=== PATIENT | female | born 1950 | race Caucasian/White ===

== ENCOUNTER 2016-07-03 08:00 | Emergency (ER) | payer MEDICARE ==
--- NOTE | 2016-07-03 08:14 | Emergency Department Record ---
History of Present Illness - General Chief Complaint: Dizziness Stated Complaint: DIZZY Time Seen by Provider: 07/03/16 08:08 Source: Patient, EMS Mode of Arrival: EMS Limitations: No limitations - History of Present Illness Initial Comments: 66yo female presents with dizziness, weakness, feeling confused. She feels somewhat short of breath, wheezing. She has a history of COPD, on home oxygen. She saw Dr Garcia yesterday for ongoing treatment of gout. He increased her Morphine to 30mg daily from 15mg for her pain. She states she has a mild headache, no vision changes, no chest pain, she has some cough and wheeze. No abdominal pain or diarrhea. She has left foot MTP redness and swelling form her gout. 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 MD Complaint: Dizziness, Lightheadedness -: Hour(s) Timing: Awoke with symptoms Description: Lightheadedness, Sense of movement History of Same: No History of Trauma: No Severity: Moderate Improves With: Nothing Associated Symptoms: Denies other symptoms, Ataxia - [place] Coma Scale Eye Response: (4) Open spontaneously Motor Response: (6) Obeys commands Verbal Response: (5) Oriented [place] Total: 15 - Symptoms of Stroke Symptoms of stroke: Dizziness - Related Data Home Medications Medication Instructions Recorded Confirmed Last Taken Albuterol Sulfate 2.5 mg NEB Q6H ml 09/14/15 07/03/16 02/14/16 Albuterol Sulfate [Ventolin Hfa] 1 - 2 puff IH Q4H inhaler 09/14/15 07/03/16 Amitriptyline HCl 25 mg PO QHS tab 09/14/15 07/03/16 02/14/16 Ascorbic Acid [Vitamin C] 1,000 mg PO DAILY tab 09/14/15 07/03/16 02/14/16 Budesonide/Formoterol Fumarate 2 puff IH BID puff 09/14/15 07/03/16 02/14/16 [Symbicort 160-4.5 Mcg Inhaler] Calcium Carbonate [Calcium] 600 mg PO DAILY tab 09/14/15 07/03/16 02/14/16 Citalopram Hydrobromide [Celexa] 40 mg PO QHS tab 09/14/15 07/03/16 02/14/16 Hydrocodone/Acetaminophen [[place] 1 tab PO Q6-8HR tab 09/14/15 07/03/16 02/14/16 10mg/325mg] Ipratropium [place] 0.2 mg IH QID 09/14/15 07/03/16 02/14/16 Meloxicam 15 mg PO DAILY tab 09/14/15 07/03/16 02/14/16 Morphine Sulfate [Ms Contin] 30 mg PO Q12H tab 09/14/15 07/03/16 07/02/16 Ranitidine HCl 150 mg PO DAILY cap 09/14/15 07/03/16 02/14/16 Sennosides/Docusate Sodium 2 tab PO DAILY tab 09/14/15 07/03/16 02/14/16 [Senexon-S Tablet] Theophylline Anhydrous 300 mg PO BID 09/14/15 07/03/16 02/14/16 Vitamin B Complex 1 each PO DAILY cap 09/14/15 07/03/16 02/14/16 Clindamycin HCl [Cleocin HCl] 300 mg PO TID 07/03/16 07/03/16 Unknown Furosemide [Furosemide] 40 mg PO DAILY 07/03/16 07/03/16 Unknown Indomethacin [Indocin] 50 mg PO BID 07/03/16 07/03/16 Unknown Sulfamethoxazole/Trimethoprim 1 tab PO BID 07/03/16 07/03/16 Unknown [Sulfamethoxazole-Tmp Ds Tablet] Allergies Allergy/AdvReac Type Severity Reaction Status Date / Time prochlorperazine Allergy Severe ANAPHYLAXIS Verified 02/14/16 11:50 meperidine HCl [From Demerol] Allergy Intermediate ALTERED Verified 02/14/16 11: 50 MENTAL STATUS Past Medical History - SOCIAL HISTORY Smoking Status: Former smoker Drug Use: None - RESPIRATORY Hx Respiratory Disorders: Yes Hx Asthma: Yes Hx Bronchitis: Yes Hx COPD: Yes Hx Pneumonia: Yes Comment:: emphysema - CARDIOVASCULAR Hx Cardio Disorders: No - NEURO Hx Neuro Disorders: No - GI Hx GI Disorders: No - Hx Genitourinary Disorders: No - ENDOCRINE Hx Endocrine Disorders: No - MUSCULOSKELETAL Hx Musculoskeletal Disorders: Yes Hx Arthritis: Yes - PSYCH Hx Psych Problems: Yes Hx Depression: Yes - HEMATOLOGY/ONCOLOGY Hx Hematology/Oncology Disorders: No Family Medical History Hx Resp Disorders: Mother, Grandparents Medical Decision Making - Lab Data Result diagrams: 07/03/16 08:30 03/05/17 08:30 Disposition Clinical Impression: COPD exacerbation, Gout attack, Adverse reaction to narcotic drug, Hypoxia, Ataxia, CVA (cerebral vascular accident) Disposition: Acute Care Hospital Transfer Condition: (1) Good Forms: Patient Portal Access
[2016-07-03] MEDS ORDERED: IPRATROPIUM/ALBUTEROL (0.5MG/3MG) NEB INH ONE (08:29)
[2016-07-03] MEDS ORDERED: MECLIZINE 25 MG TABLET PO ONE (08:30)
--- NOTE | 2016-07-03 08:38 | Emergency Department Record ---
History of Present Illness - General Chief Complaint: Dizziness Stated Complaint: DIZZY Time Seen by Provider: 07/03/16 08:08 Source: Patient, EMS Mode of Arrival: EMS Limitations: No limitations - History of Present Illness Initial Comments: 66 yo female presents with dizziness since . She called EMS today due to increasing dizziness, trouble walking, trouble concentrating. She has also been short of breath the last several days. She saw her PCP . He is treating her for gout. He also increased her Morphine from 15mg BID to 30mg BID. No falls. PCP is Dr Garcia. She is on antibiotics for her gout and has been seen by Podiatry in [place] -: Hour(s) Timing: Awoke with symptoms Description: Lightheadedness, Sense of movement History of Same: No History of Trauma: No Severity: Moderate Improves With: Nothing Worsens With: Nothing Associated Symptoms: Denies other symptoms, Ataxia - [place] Coma Scale Eye Response: (4) Open spontaneously Motor Response: (6) Obeys commands Verbal Response: (5) Oriented [place] Total: 15 - Symptoms of Stroke Symptoms of stroke: Dizziness - Related Data Home Medications Medication Instructions Recorded Confirmed Last Taken Albuterol Sulfate 2.5 mg NEB Q6H ml 09/14/15 07/03/16 02/14/16 Albuterol Sulfate [Ventolin Hfa] 1 - 2 puff IH Q4H inhaler 09/14/15 07/03/16 Amitriptyline HCl 25 mg PO QHS tab 09/14/15 07/03/16 02/14/16 Ascorbic Acid [Vitamin C] 1,000 mg PO DAILY tab 09/14/15 07/03/16 02/14/16 Budesonide/Formoterol Fumarate 2 puff IH BID puff 09/14/15 07/03/16 02/14/16 [Symbicort 160-4.5 Mcg Inhaler] Calcium Carbonate [Calcium] 600 mg PO DAILY tab 09/14/15 07/03/16 02/14/16 Citalopram Hydrobromide [Celexa] 40 mg PO QHS tab 09/14/15 07/03/16 02/14/16 Hydrocodone/Acetaminophen [[place] 1 tab PO Q6-8HR tab 09/14/15 07/03/16 02/14/16 10mg/325mg] Ipratropium [place] 0.2 mg IH QID 09/14/15 07/03/16 02/14/16 Meloxicam 15 mg PO DAILY tab 09/14/15 07/03/16 02/14/16 Morphine Sulfate [Ms Contin] 30 mg PO Q12H tab 09/14/15 07/03/16 07/02/16 Ranitidine HCl 150 mg PO DAILY cap 09/14/15 07/03/16 02/14/16 Sennosides/Docusate Sodium 2 tab PO DAILY tab 09/14/15 07/03/16 02/14/16 [Senexon-S Tablet] Theophylline Anhydrous 300 mg PO BID 09/14/15 07/03/16 02/14/16 Vitamin B Complex 1 each PO DAILY cap 09/14/15 07/03/16 02/14/16 Clindamycin HCl [Cleocin HCl] 300 mg PO TID 07/03/16 07/03/16 Unknown Furosemide [Furosemide] 40 mg PO DAILY 07/03/16 07/03/16 Unknown Indomethacin [Indocin] 50 mg PO BID 07/03/16 07/03/16 Unknown Sulfamethoxazole/Trimethoprim 1 tab PO BID 07/03/16 07/03/16 Unknown [Sulfamethoxazole-Tmp Ds Tablet] Allergies Allergy/AdvReac Type Severity Reaction Status Date / Time prochlorperazine Allergy Severe ANAPHYLAXIS Verified 02/14/16 11:50 meperidine HCl [From Demerol] Allergy Intermediate ALTERED Verified 02/14/16 11: 50 MENTAL STATUS Travel Screening - Travel/Exposure Within Last 30 Days Have you traveled within the last 30 days?: No Review of Systems Constitutional: Reports: Malaise, Weakness. Denies: Chills Eyes: Denies: Eye discharge, Eye pain, Photophobia, Vision change ENT: Denies: Congestion Respiratory: Reports: Cough, Wheezes. Denies: Dyspnea, Stridor Cardiovascular: Denies: Chest pain, Palpitations, Syncope Endocrine: Reports: Fatigue. Denies: Polydipsia, Polyuria Gastrointestinal: Denies: Abdominal pain, Diarrhea, Nausea, Vomiting Genitourinary: Denies: Dysuria, Frequency, Urgency Musculoskeletal: Reports: Arthralgia (gout). Denies: Back pain, Myalgia, Neck pain Skin: Denies: Bruising, Change in color, Rash Neurological: Reports: Headache, Vertigo, Weakness. Denies: Confusion, Numbness , Paresthesias Psychiatric: Denies: Anxiety Hematological/Lymphatic: Denies: Blood Clots, Easy bleeding, Easy bruising, Swollen glands Past Medical History - SOCIAL HISTORY Smoking Status: Former smoker Drug Use: None - RESPIRATORY Hx Respiratory Disorders: Yes Hx Asthma: Yes Hx Bronchitis: Yes Hx COPD: Yes Hx Pneumonia: Yes Comment:: emphysema - CARDIOVASCULAR Hx Cardio Disorders: No - NEURO Hx Neuro Disorders: No - GI Hx GI Disorders: No - Hx Genitourinary Disorders: No - ENDOCRINE Hx Endocrine Disorders: No - MUSCULOSKELETAL Hx Musculoskeletal Disorders: Yes Hx Arthritis: Yes - PSYCH Hx Psych Problems: Yes Hx Depression: Yes - HEMATOLOGY/ONCOLOGY Hx Hematology/Oncology Disorders: No Family Medical History Hx Resp Disorders: Mother, Grandparents Physical Exam - General General Appearance: Alert, Oriented x3 (fully oriented but easily side tracked) , Cooperative, No acute distress Limitations: No limitations - Head Head exam: Atraumatic, Normal inspection - Eye Eye exam: Normal appearance, PERRL. negative: Conjunctival injection, Periorbital swelling - ENT ENT exam: Normal exam, Mucous membranes dry Ear exam: Normal external inspection Nasal Exam: Normal inspection Mouth exam: Normal external inspection Teeth exam: Normal inspection Throat exam: Normal inspection - Neck Neck exam: Normal inspection, Full ROM. negative: Tenderness - Respiratory Respiratory exam: Decreased breath sounds, Prolonged expiratory, Wheezes. negative: Normal lung sounds bilaterally, Respiratory distress - Cardiovascular Cardiovascular Exam: Normal rhythm, Tachycardia - Rectal Rectal exam: Deferred - exam: Deferred - Extremities Extremities exam: Joint swelling (left foot MTP red, swollen, clear drainage), Pedal edema, Tenderness - Back Back exam: Reports: Normal inspection, Full ROM. Denies: Muscle spasm, Rash noted, Tenderness - Neurological Neurological exam: Abnormal gait, Alert, Other (Unsteady on her feet, oriented but looses train of thought) - Psychiatric Psychiatric exam: Other (some attention difficulties). negative: Agitated, Anxious - Skin Skin exam: Dry, Intact, Normal color, Warm Course Vital Signs 07/03/16 08:03 Temperature 98.6 F Pulse Rate 109 H Respiratory 20 Rate Blood Pressure 190/93 Pulse Ox 89 L - Reevaluation(s) Reevaluation #1: Please note initial note was inadvertently made under Dr Jack Davalos's name. The entirety of the case was under my care" Hugh Agosto MD. 07/03/16 08:33 Reevaluation #2: EKG Sinus 98, intervals normal, axis normal, ST no acute changes, old Q wave in III No changes from 02/13/17 07/03/16 09:01 Reevaluation #3: The CXR is negative HCT pending 07/03/16 09:49 Reevaluation #4: HCT scan demonstrates a lucency in the right internal capsule that may represent a subacute stroke Given this finding I discussed possible transfer to [facility] for further evaluation [facility] was contacted (Quin CLEARY) 07/03/16 10:24 Medical Decision Making - Lab Data Result diagrams: 07/03/16 08:30 07/03/16 08:30 Disposition Disposition: Transfer Clinical Impression: COPD exacerbation, Acute gout, Adverse effect of narcotic drug, Hypoxia, Ataxia , Cerebrovascular accident (CVA) Disposition: Acute Care Hospital Transfer Transfer To: [facility] Reason For Transfer: Neuro Accepting Physician: Garry Time Discussed w/Accepting Physician: 10:26 Condition: (1) Good Forms: Patient Portal Access Time of Disposition: 10:26
[2016-07-03 08:48] LABS: BASO % 0.4 % (0-6); EOS % 1.7 % (0-6); GRAN % 71.9 % (47-80); HEMATOCRIT 42.1 % (35.0-47.0); HEMOGLOBIN 12.6 gm/dl (11.6-16.0); MEAN CELL VOLUME 102.7 fl (81-97); MEAN CORPUSCULAR HEMOGLOBIN 30.7 pg (27-33); MEAN CORPUSCULAR HGB CONC 29.9 g/dl (32-36); MEAN PLATELET VOLUME 11.4 fl (7.4-10.4); PLATELET COUNT 295 K/uL (130-400); RED CELL DISTRIBUTION WIDTH 11.8 % (11.5-14.5); WHITE BLOOD COUNT W/O DIFF 9.8 K/uL (4.2-12.2)
[2016-07-03 08:58] LABS: ALB/GLOB RATIO 1.2 (1.1-1.8); ALBUMIN 3.8 gm/dL (3.5-5.0); ALKALINE PHOSPHATASE 92 U/L (38-126); ALT/SGPT 31 U/L (9-52); AST/SGOT 32 U/L (14-36); BILIRUBIN,TOTAL 0.28 mg/dL (0.2-1.3); BLOOD UREA NITROGEN 16 mg/dL (7-17); CREATININE 0.6 mg/dL (0.52-1.04); EST GLOMERULAR FILTRATION RATE > 60 ml/min; GLUCOSE,RANDOM 156 mg/dL (70-110); TOTAL PROTEIN 7.1 gm/dL (6.3-8.2)
[2016-07-03 19:49] LABS: TROPONIN I 0.022 ng/mL (0.00-0.034)
== END 2016-07-03 13:30 | disposition short-term general hospital (02) ==
LOC: ER 08:00
DX: I63.9 Cerebral infarction, unspecified (principal); R26.0 Ataxic gait; M10.072 Idiopathic gout, left ankle and foot; J44.1 Chronic obstructive pulmonary disease with (acute) exacerbation; Z87.891 Personal history of nicotine dependence; R51 Headache; T40.2X5A Adverse effect of other opioids, initial encounter; R42 Dizziness and giddiness
CPT/HCPCS: 70450; 71020; 80053; 83880; 84484; 85025; 93005; 93010; 94640; 99285

== ENCOUNTER 2016-12-13 10:06 | Inpatient (IN) | payer MEDICARE ==
[2016-12-13] MEDS ORDERED: IPRATROPIUM/ALBUTEROL (0.5MG/3MG) NEB INH ONE ×2 (10:09→11:00)
--- NOTE | 2016-12-13 10:15 | Emergency Department Record ---
History of Present Illness - General Stated Complaint: DAVID Time Seen by Provider: 12/13/16 10:08 Source: Patient, EMS Mode of Arrival: Stretcher Limitations: No limitations - History of Present Illness Initial Comments: 66 yo presents with shortness of breath that has been progressive over the last one week. She reports a history of COPD on 2 liters home oxygen. She has increased cough. No fevers or chest pain. She is a former smoker. She denies a history of CAD or CHF. PCP is Dr Garcia. She is on Duonebs and/or Albuterol K5idalb. She does have some ortega sputum on occasion. NO hemoptysis. No current oral steroid or inhaled steroid. MD Complaint: Cough, Shortness of breath -: Week(s) (1) Severity: Moderate Quality: Other Consistency: Constant Improves With: Bronchodilators Worsens With: Coughing, Movement Known History Of: COPD Context: Other Associated Symptoms: Cough Treatments Prior to Arrival: Bronchodilator - Related Data Home Medications Medication Instructions Recorded Confirmed Last Taken Albuterol Sulfate 2.5 mg NEB Q6H ml 09/14/15 12/13/16 02/14/16 Albuterol Sulfate [Ventolin Hfa] 1 - 2 puff IH Q4H inhaler 09/14/15 12/13/16 Amitriptyline HCl 25 mg PO QHS tab 09/14/15 12/13/16 02/14/16 Calcium Carbonate [Calcium] 600 mg PO DAILY tab 09/14/15 12/13/16 02/14/16 Citalopram Hydrobromide [Celexa] 40 mg PO QHS tab 09/14/15 12/13/16 02/14/16 Meloxicam 15 mg PO DAILY tab 09/14/15 12/13/16 02/14/16 Ranitidine HCl 150 mg PO DAILY cap 09/14/15 12/13/16 02/14/16 Sennosides/Docusate Sodium 2 tab PO DAILY tab 09/14/15 12/13/16 02/14/16 [Senexon-S Tablet] Theophylline Anhydrous 300 mg PO BID 09/14/15 12/13/16 02/14/16 Vitamin B Complex 1 each PO DAILY cap 09/14/15 12/13/16 02/14/16 Furosemide [Furosemide] 20 mg PO DAILY 07/03/16 12/13/16 Unknown Indomethacin [Indocin] 100 mg PO DAILY 07/03/16 12/13/16 Unknown Azithromycin [Azithromycin] 500 mg PO ASDIR 12/13/16 12/13/16 Unknown Cetirizine HCl [Allergy Relief] 10 mg PO DAILY 12/13/16 12/13/16 Unknown Ipratropium/Albuterol [Duoneb] 3 ml IH Q4H PRN 12/13/16 12/13/16 Unknown Allergies Allergy/AdvReac Type Severity Reaction Status Date / Time prochlorperazine Allergy Severe ANAPHYLAXIS Verified 02/14/16 11:50 meperidine HCl [From Demerol] Allergy Intermediate ALTERED Verified 02/14/16 11: 50 MENTAL STATUS Review of Systems Constitutional: Reports: Weakness. Denies: Chills, Fever Eyes: Denies: Eye discharge ENT: Denies: Congestion, Throat pain Respiratory: Reports: Cough, Dyspnea, Wheezes. Denies: Hemoptysis Cardiovascular: Denies: Chest pain, Palpitations, Syncope Endocrine: Denies: Fatigue Gastrointestinal: Denies: Abdominal pain, Diarrhea, Nausea, Vomiting Genitourinary: Denies: Dysuria Musculoskeletal: Denies: Arthralgia, Back pain, Neck pain Skin: Denies: Bruising, Change in color, Rash Neurological: Denies: Confusion, Headache, Numbness, Tingling, Tremors, Vertigo , Weakness Psychiatric: Denies: Anxiety Hematological/Lymphatic: Denies: Blood Clots, Easy bleeding, Easy bruising, Swollen glands Past Medical History - SOCIAL HISTORY Smoking Status: Former smoker Drug Use: None - RESPIRATORY Hx Respiratory Disorders: Yes Hx Asthma: Yes Hx Bronchitis: Yes Hx COPD: Yes Hx Pneumonia: Yes Comment:: emphysema - CARDIOVASCULAR Hx Cardio Disorders: No - NEURO Hx Neuro Disorders: No - GI Hx GI Disorders: No - Hx Genitourinary Disorders: No - ENDOCRINE Hx Endocrine Disorders: No - MUSCULOSKELETAL Hx Musculoskeletal Disorders: Yes Hx Arthritis: Yes - PSYCH Hx Psych Problems: Yes Hx Depression: Yes - HEMATOLOGY/ONCOLOGY Hx Hematology/Oncology Disorders: No Family Medical History Hx Resp Disorders: Mother, Grandparents Physical Exam - General General Appearance: Alert, Oriented x3, Cooperative, No acute distress Limitations: No limitations - Head Head exam: Normal inspection - Eye Eye exam: Normal appearance, PERRL. negative: Conjunctival injection, Periorbital swelling - ENT ENT exam: Normal exam, Mucous membranes moist Ear exam: Normal external inspection Nasal Exam: Normal inspection Mouth exam: Normal external inspection Teeth exam: Normal inspection Throat exam: Normal inspection - Neck Neck exam: Normal inspection, Full ROM. negative: Tenderness - Respiratory Respiratory exam: Accessory muscle use, Decreased breath sounds, Prolonged expiratory, Rhonchi, Wheezes. negative: Normal lung sounds bilaterally - Cardiovascular Cardiovascular Exam: Regular rate, Normal rhythm, Normal heart sounds - GI/Abdominal GI/Abdominal exam: Soft. negative: Tenderness - Rectal Rectal exam: Deferred - exam: Deferred - Extremities Extremities exam: Normal inspection, Full ROM, Normal capillary refill. negative: Tenderness - Back Back exam: Reports: Normal inspection, Full ROM. Denies: Muscle spasm, Rash noted, Tenderness - Neurological Neurological exam: Alert, Normal gait, Oriented X3 - Psychiatric Psychiatric exam: Normal affect, Normal mood. negative: Agitated, Anxious - Skin Skin exam: Dry, Intact, Normal color, Warm. negative: Erythema Course - Reevaluation(s) Reevaluation #1: RT notified and present in the room, 12/13/16 10:14 Reevaluation #2: EKG 10:27 Sinus Tach at 111, intervals Qtc 480, [place] rightward, ST no acute changes 12/13/16 10:34 Reevaluation #3: CXR no acute changes The patient has persistent wheezing. She will require admission. 12/13/16 11:03 Reevaluation #4: The labs were reviewed No acute changes on the CBC CMP reviewed. HCO3 at baseline Troponin 0.034 [address]NP [address]. PAC for admission for COPD. We discussed the ED course, labs, CXR. Full Admission. 12/13/16 11:28 12/13/16 11:34 Medical Decision Making - Lab Data Result diagrams: 12/13/16 10:30 12/13/16 10:30 Disposition Disposition: Admit Clinical Impression: COPD exacerbation Disposition: Still a Patient at [facility] Decision to Admit: Admit from ER Decision to Admit Date: 12/13/16 Decision to Admit Time: 11:05 Condition: (1) Good Time of Disposition: 11:05 Quality - Quality Measures Quality Measures: N/A - Blood Pressure Screening View Details: Yes Does Patient Have Any of the Following: No Blood Pressure Classification: Pre-Hypertensive BP Reading Systolic Measurement: 139 Diastolic Measurement: 87 Screening for High Blood Pressure: < Pre-Hypertensive BP, F/U Documented > [ [id number]] Pre-Hypertensive Follow-up Interventions: Referral to alternative/primary care provider.
[2016-12-13 10:49] LABS: BASO % 0.8 % (0-6); EOS % 3.5 % (0-6); GRAN % 55.2 % (47-80); HEMATOCRIT 41.5 % (35.0-47.0); HEMOGLOBIN 12.5 gm/dl (11.6-16.0); LYMPH % 32.5 % (16-45); MEAN CELL VOLUME 99.3 fl (81-97); MEAN CORPUSCULAR HEMOGLOBIN 29.9 pg (27-33); MEAN CORPUSCULAR HGB CONC 30.1 g/dl (32-36); MEAN PLATELET VOLUME 10.9 fl (7.4-10.4); PLATELET COUNT 406 K/uL (130-400); RED BLOOD COUNT 4.18 M/uL (3.80-5.40); RED CELL DISTRIBUTION WIDTH 12.7 % (11.5-14.5); WHITE BLOOD COUNT W/O DIFF 9.7 K/uL (4.2-12.2)
[2016-12-13 11:03] LABS: ALBUMIN 3.7 gm/dL (3.5-5.0); ALKALINE PHOSPHATASE 125 U/L (38-126); ALT/SGPT 47 U/L (9-52); AST/SGOT 26 U/L (14-36); BILIRUBIN,TOTAL 0.67 mg/dL (0.2-1.3); BLOOD UREA NITROGEN 15 mg/dL (7-17); CREATININE 0.6 mg/dL (0.52-1.04); EST GLOMERULAR FILTRATION RATE > 60 ml/min; GLUCOSE,RANDOM 159 mg/dL (70-110); TOTAL PROTEIN 7.5 gm/dL (6.3-8.2)
[2016-12-13] MEDS ORDERED: CEFTRIAXONE SODIUM 1 GM in 0.9 % SODIUM CHLORIDE 100ML 100 ML IVPB ONE (11:03)
[2016-12-13 11:11] LABS: ANION GAP 5.5 (7-16)
[2016-12-13 11:12] LABS: CARBON DIOXIDE 43.5 mmol/L (22-30)
[2016-12-13 11:14] LABS: TROPONIN I 0.034 ng/mL (0.00-0.034)
[2016-12-13] MEDS ORDERED: ALBUTEROL SULFATE (0.083%) 2.5 MG/3 ML NEB INH PRN (12:55)
[2016-12-13] MEDS ORDERED: METHYLPREDNISOLONE PF 125MG/VIAL IVP SCH (12:55)
--- NOTE | 2016-12-13 13:02 | History & Physical ---
History of Present Illness - Date of Service Date of Service for History & Physical: 12/13/16 - History of Present Illness Admitting Diagnosis: COPD History of Present Illness: 66 y/o female with 1 week history of progressive worsening of wheezing and shortness of breath admitted for exacerbation of COPD. Past medical history includes bilateral cataracts, asthma, bronchitis, COPD, pneumonia, former smoker , CAD, CHF, arthritis, gout, depression. Prior to arrival had progressive worsening of wheezing, cough and shortness of breath for the past week, has been having to use duo neb every 4 hours without relief of shortness of breath. Admits to mild increase in ortega colored sputum. Denied fever or chest pain. Uses 2L O2 at home. Last hospitalized for pneumonia just over 1 year ago. 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 While in ED SPO2 89% room air, 94% 2L O2. VSS. CBC/CMP unremarkable, no elevation in WBC. Troponin 0.034, BNP 350. CO2 43.5. EKG sinus tach, no acute changes. CXR with mild chronic changes, no infiltrate. Given duo neb x 2 with persistent wheezing. Rocephin 1gm initiated. 12/13/16- resting in bed comfortably, reports improvement in shortness of breath. Wheezing remains but feels is slightly improved since being in the ER. VSS stable. No new nursing concerns. PCP: Dr Gracia Pulmonology: Dr Doyle Travel Screening - Travel/Exposure Within Last 30 Days Have you traveled within the last 30 days?: No Review of Systems Constitutional: Reports: Weakness. Denies: Chills, Fever Eyes: Denies: Eye discharge ENT: Denies: Congestion, Throat pain Respiratory: Reports: Cough, Dyspnea, Wheezes. Denies: Hemoptysis Cardiovascular: Denies: Chest pain, Palpitations, Syncope Endocrine: Denies: Fatigue Gastrointestinal: Denies: Abdominal pain, Diarrhea, Nausea, Vomiting Genitourinary: Denies: Dysuria Musculoskeletal: Denies: Arthralgia, Back pain, Neck pain Skin: Denies: Bruising, Change in color, Rash Neurological: Denies: Confusion, Headache, Numbness, Tingling, Tremors, Vertigo , Weakness Psychiatric: Denies: Anxiety Hematological/Lymphatic: Denies: Blood Clots, Easy bleeding, Easy bruising, Swollen glands Past Medical History - SOCIAL HISTORY Smoking Status: Former smoker Drug Use: None - RESPIRATORY Hx Respiratory Disorders: Yes Hx Asthma: Yes Hx Bronchitis: Yes Hx COPD: Yes Hx Pneumonia: Yes Comment:: emphysema - CARDIOVASCULAR Hx Cardio Disorders: No - NEURO Hx Neuro Disorders: No - GI Hx GI Disorders: No - Hx Genitourinary Disorders: No - ENDOCRINE Hx Endocrine Disorders: No - MUSCULOSKELETAL Hx Musculoskeletal Disorders: Yes Hx Arthritis: Yes - PSYCH Hx Psych Problems: Yes Hx Depression: Yes - HEMATOLOGY/ONCOLOGY Hx Hematology/Oncology Disorders: No Family Medical History Hx Resp Disorders: Mother, Grandparents H&P Meds/Allergies - Allergies Allergies: Allergies Allergy/AdvReac Type Severity Reaction Status Date / Time prochlorperazine Allergy Severe ANAPHYLAXIS Verified 02/14/16 11:50 meperidine HCl [From Demerol] Allergy Intermediate ALTERED Verified 02/14/16 11: 50 MENTAL STATUS - Home Medications Home Medications Medication Instructions Recorded Confirmed Last Taken Albuterol Sulfate 2.5 mg NEB Q6H ml 09/14/15 12/13/16 02/14/16 Albuterol Sulfate [Ventolin Hfa] 1 - 2 puff IH Q4H inhaler 09/14/15 12/13/16 Amitriptyline HCl 25 mg PO QHS tab 09/14/15 12/13/16 02/14/16 Calcium Carbonate [Calcium] 600 mg PO DAILY tab 09/14/15 12/13/16 02/14/16 Citalopram Hydrobromide [Celexa] 40 mg PO QHS tab 09/14/15 12/13/16 02/14/16 Meloxicam 15 mg PO DAILY tab 09/14/15 12/13/16 02/14/16 Ranitidine HCl 150 mg PO DAILY cap 09/14/15 12/13/16 02/14/16 Sennosides/Docusate Sodium 2 tab PO DAILY tab 09/14/15 12/13/16 02/14/16 [Senexon-S Tablet] Theophylline Anhydrous 300 mg PO BID 09/14/15 12/13/16 02/14/16 Vitamin B Complex 1 each PO DAILY cap 09/14/15 12/13/16 02/14/16 Furosemide [Furosemide] 20 mg PO DAILY 07/03/16 12/13/16 Unknown Indomethacin [Indocin] 100 mg PO DAILY 07/03/16 12/13/16 Unknown Azithromycin [Azithromycin] 500 mg PO ASDIR 12/13/16 12/13/16 Unknown Cetirizine HCl [Allergy Relief] 10 mg PO DAILY 12/13/16 12/13/16 Unknown Ipratropium/Albuterol [Duoneb] 3 ml IH Q4H PRN 12/13/16 12/13/16 Unknown - Active Medications Active Medications: Current Medications Acetaminophen (Tylenol 500mg Tab) 500 mg PO Q6H PRN PRN Reason: PAIN/TEMP Albuterol Sulfate () 2.5 mg INH RESP.Q2H PRN PRN Reason: DIFFICULTY IN BREATHING Albuterol/Ipratropium (Duoneb) 3 ml INH RESP.Q4H.[facility] Amitriptyline HCl (Elavil) 25 mg PO QHS [facility] Azithromycin (Zithromax) 500 mg PO DAILY [facility] Enoxaparin Sodium (Lovenox) 40 mg SC DAILY [facility] Furosemide (Lasix) 20 mg PO DAILY [facility] Ceftriaxone Sodium 1 gm/ (Sodium Chloride) 100 mls @ 100 mls/hr IVPB Q24H [facility] Stop: 12/18/16 12:56 Methylprednisolone Sodium Succinate (Solu-Medrol) 60 mg IVP Q8H [facility] Non-Formulary Medication (Calcium Carbonate [Calcium]) 600 mg PO DAILY [facility] Non-Formulary Medication (Cetirizine Hcl [Allergy Relief]) 10 mg PO DAILY [facility] Non-Formulary Medication (Citalopram Hydrobromide [Celexa]) 40 mg PO QHS [facility] Non-Formulary Medication (Indomethacin [Indocin]) 100 mg PO DAILY [facility] Non-Formulary Medication (Meloxicam [Meloxicam]) 15 mg PO DAILY [facility] Non-Formulary Medication (Ranitidine Hcl [Ranitidine Hcl]) 150 mg PO DAILY [facility] Non-Formulary Medication (Theophylline Anhydrous [Theophylline Anhydrous]) 300 mg PO BID [facility] Non-Formulary Medication (Vitamin B Complex [Vitamin B Complex]) 1 each PO DAILY [facility] Senna/Docusate Sodium (Senna Plus) each PO DAILY [facility] Physical Exam - General General Appearance: Alert, Oriented x3, Cooperative, No acute distress Limitations: No limitations - Head Head exam: Normal inspection - Eye Eye exam: Normal appearance, PERRL. negative: Conjunctival injection, Periorbital swelling - ENT ENT exam: Normal exam, Mucous membranes moist Ear exam: Normal external inspection Nasal Exam: Normal inspection Mouth exam: Normal external inspection Teeth exam: Normal inspection Throat exam: Normal inspection - Neck Neck exam: Normal inspection, Full ROM. negative: Tenderness - Respiratory Respiratory exam: Accessory muscle use, Decreased breath sounds, Prolonged expiratory, Rhonchi, Wheezes. negative: Normal lung sounds bilaterally - Cardiovascular Cardiovascular Exam: Regular rate, Normal rhythm, Normal heart sounds - GI/Abdominal GI/Abdominal exam: Soft. negative: Tenderness - Rectal Rectal exam: Deferred - exam: Deferred - Extremities Extremities exam: Normal inspection, Full ROM, Normal capillary refill. negative: Tenderness - Back Back exam: Reports: Normal inspection, Full ROM. Denies: Muscle spasm, Rash noted, Tenderness - Neurological Neurological exam: Alert, Normal gait, Oriented X3 - Psychiatric Psychiatric exam: Normal affect, Normal mood. negative: Agitated, Anxious - Skin Skin exam: Dry, Intact, Normal color, Warm. negative: Erythema Results - Labs Result Diagrams: 12/13/16 10:30 12/13/16 10:30 - Imaging and Cardiology Chest x-ray Status: Report reviewed (chronic changes) VTE H&P Assessment - Risk for VTE Risk for VTE: Yes Risk Level: Moderate Risk Assessment Date: 12/13/16 Risk Assessment Time: 13:34 VTE Orders Placed or Will Be Placed: Yes Plan - Inpatient Certification Inpatient Certification: Admit to inpatient care: Based on my medical assessment, after consideration of patient's risk factors (age, co-morbidities and patient presenting symptoms and acuity), I expect that this patient will remain in the hospital greater than or equal to two midnights and that the services needed warrant inpatient care because: Patient Risk Factors: [COPD, advanced age] Estimated length of stay: [48-72 hours] The patient may reasonably be expected to be discharged or transferred to a hospital within 96 hours after admission to [facility]. Services needed: [IV antibiotics, IV steroids] Post hospital care (if known): [] I certify that my determination is in accordance with my understanding of Medicare requirements for reasonable and necessary inpatient services. 12/13/16 13:34 - Detailed Diagnosis and Plan (1) COPD exacerbation Current Visit: Yes Status: Acute Base Code: J44.1 - CHRONIC OBSTRUCTIVE PULMONARY DISEASE W (ACUTE) EXACERBATION Comment: 12/13/16- continue Duo Neb and albuterol as scheduled - IV Solumedrol 60mg Q 8 hrs - O2 to keep SPO2 88-92% - Rocephin 1gm BID, Zithromax 500mg QD - consider changing to Levaquin IV should she not make any clinical improvements over the next 24 hours (2) DVT prophylaxis Current Visit: No Status: Acute Base Code: [id number] - Comment: 12/13/16 - Will continue Lovenox 40mg SQ QD for DVT prophylaxis
[2016-12-13] MEDS: CEFTRIAXONE SODIUM 1 GM in 0.9 % SODIUM CHLORIDE 100ML 100 ML IVPB SCH ×3 (13:26→21:49)
[2016-12-13] MEDS: AZITHROMYCIN 500 MG TABLET PO SCH (13:31)
[2016-12-13] MEDS: IPRATROPIUM/ALBUTEROL (0.5MG/3MG) NEB INH SCH ×3 (13:45→21:21)
[2016-12-13] MEDS ORDERED: SENNOSIDES/DOCUSATE SODIUM UD CAPSULE PO PRN (14:15)
[2016-12-13] MEDS: CITALOPRAM 20 MG TABLET PO SCH (21:49)
[2016-12-13] MEDS: AMITRIPTYLINE 25 MG TABLET PO SCH (21:50)
[2016-12-13] MEDS: THEOPHYLLINE 300 MG PO SCH (21:57)
[2016-12-14] MEDS: IPRATROPIUM/ALBUTEROL (0.5MG/3MG) NEB INH SCH ×5 (06:01→21:33)
--- NOTE | 2016-12-14 08:06 | RADIOLOGY REPORT ---
EXAM: PORTABLE CHEST HISTORY: DIFFICULTY IN BREATHING. TECHNIQUE: A portable chest was performed. FINDINGS: There is mild cardiomegaly. No pulmonary vascular congestion. No infiltrate or pleural effusion. The osseous structures are normal. IMPRESSION: MILD CARDIOMEGALY. JOB NUMBER: [id number] MTDD
--- NOTE | 2016-12-14 09:16 | Physician Progress Note ---
Subjective - Date Date of Physician Progress Note: 12/14/16 - Subjective Subjective Comment: Reports is overall feeling better today. Has been ambulating in room and to bathroom, remains short of breath with activity that has improved since yesterday but reports does not feel she is at her baseline. VSS. Has remained afebrile. No new nursing concerns. Did discuss her request for DNR and verbalizes understanding of what that entails Objective - Vital Signs Vital Signs: Vital Signs - Last 24 Hrs Temp Pulse Pulse Resp BP BP Pulse Ox 12/14/16 07:50 18 12/14/16 06:15 99 H 18 32 L 12/14/16 06:02 99 H 16 98 12/14/16 05:30 97.8 F 94 H 20 120/71 94 L 12/13/16 21:26 99 H 20 91 L 12/13/16 21:22 99 H 20 98 12/13/16 21:00 88 16 12/13/16 20:00 98.0 F 100 H 20 121/76 93 L 12/13/16 17:03 94 H 18 93 L 12/13/16 13:49 110 H 20 92 L 12/13/16 13:46 110 H 20 92 L 12/13/16 12:59 107 H 24 131/64 91 L 12/13/16 12:55 98.3 F 110 H 18 152/67 95 - General General Appearance: Alert, Oriented x3, Cooperative, No acute distress Limitations: No limitations - Head Head exam: Normal inspection - Eye Eye exam: Normal appearance, PERRL. negative: Conjunctival injection, Periorbital swelling - ENT ENT exam: Normal exam, Mucous membranes moist Ear exam: Normal external inspection Nasal Exam: Normal inspection Mouth exam: Normal external inspection Teeth exam: Normal inspection Throat exam: Normal inspection - Neck Neck exam: Normal inspection, Full ROM. negative: Tenderness - Respiratory Respiratory exam: Decreased breath sounds, Prolonged expiratory (improved from yesterday), Rhonchi (diffuse), Wheezes (diffuse), Other (improved air exchange, is mobilizing secretions). negative: Normal lung sounds bilaterally - Cardiovascular Cardiovascular Exam: Regular rate, Normal rhythm, Normal heart sounds Peripheral Pulses: 2+: Dorsalis Pedis (R), Dorsalis Pedis (L) - GI/Abdominal GI/Abdominal exam: Soft. negative: Tenderness - Rectal Rectal exam: Deferred - exam: Deferred - Extremities Extremities exam: Normal inspection, Full ROM, Normal capillary refill, Other ( mild erythema and tenderness to left great toe and right heel from a previous recent gout flare). negative: Pedal edema, Tenderness - Back Back exam: Reports: Normal inspection, Full ROM. Denies: Muscle spasm, Rash noted, Tenderness - Neurological Neurological exam: Alert, Normal gait, Oriented X3 - Psychiatric Psychiatric exam: Normal affect, Normal mood. negative: Agitated, Anxious - Skin Skin exam: Dry, Intact, Normal color, Warm. negative: Erythema Assessment and Plan - Assessment and Plan (1) COPD exacerbation Current Visit: Yes Status: Acute Base Code: J44.1 - CHRONIC OBSTRUCTIVE PULMONARY DISEASE W (ACUTE) EXACERBATION Onset Date: Comment: 12/14/16- clinically improved today, improved air exchange and mobilizing secretions - continue Duo Neb and albuterol as scheduled - tele- remains NSR - IV Solumedrol decreased to 60mg QD - O2 to keep SPO2 88-92% - Rocephin 1gm BID, Zithromax 500mg QD - consider discharge home tomorrow should she remain afebrile and has improvement in dyspnea with activity (2) DVT prophylaxis Current Visit: No Status: Acute Base Code: [id number] - Comment: 12/14/16 - Will continue Lovenox 40mg SQ QD for DVT prophylaxis (3) DNR (do not resuscitate) Current Visit: Yes Status: Acute Base Code: Z66 - DO NOT RESUSCITATE Comment: 12/14/16: Patient remains DNR during current hospitalization Results - Labs Result Diagrams: 12/13/16 10:30 12/13/16 10:30 DVT/PE Assessment - Risk for VTE Risk for VTE: No Risk Level: Moderate Risk Assessment Date: 12/13/16 Risk Assessment Time: 13:34 VTE Orders Placed or Will Be Placed: Yes - Active Medicaitons Current Medications: Current Medications Acetaminophen (Tylenol 500mg Tab) 500 mg PO Q6H PRN PRN Reason: PAIN/TEMP Albuterol Sulfate () 2.5 mg INH RESP.Q2H PRN PRN Reason: DIFFICULTY IN BREATHING Albuterol/Ipratropium (Duoneb) 3 ml INH RESP.Q4H.[place] [facility] Last Admin: 12/14/16 06:01 Dose: 3 ml Amitriptyline HCl (Elavil) 25 mg PO QHS [facility] Last Admin: 12/13/16 21:50 Dose: 25 mg Azithromycin (Zithromax) 500 mg PO DAILY [facility] Last Admin: 12/13/16 13:31 Dose: 500 mg Calcium/Vitamin D (Calcium 500+D Tablet) 1 tab PO DAILY [facility] Citalopram Hydrobromide (Celexa) 40 mg PO QHS [facility] Last Admin: 12/13/16 21:49 Dose: 40 mg Enoxaparin Sodium (Lovenox) 40 mg SC DAILY [facility] Furosemide (Lasix) 20 mg PO DAILY [facility] Ceftriaxone Sodium 1 gm/ (Sodium Chloride) 100 mls @ 200 mls/hr IVPB Q12HR [facility] Stop: 12/18/16 22:01 Last Infusion: 12/13/16 22:40 Dose: Infused Loratadine (Claritin) 10 mg PO DAILY [facility] Meloxicam (Mobic) 15 mg PO DAILY [facility] Methylprednisolone Sodium Succinate (Solu-Medrol) 60 mg IVP DAILY [facility] Patient Own Med: (Theophylline 300 Mg) 1 each PO BID [facility] Last Admin: 12/13/16 21:57 Dose: Not Given Ranitidine HCl (Zantac) 150 mg PO DAILY [facility] Senna/Docusate Sodium (Senna Plus) 1 each PO DAILY PRN PRN Reason: CONSTIPATION AMI Plan - Labs Result Diagrams: 12/13/16 10:30 12/13/16 10:30
[2016-12-14] MEDS: ENOXAPARIN 40 MG/0.4 ML SYR SC SCH (09:22)
[2016-12-14] MEDS: METHYLPREDNISOLONE PF 125MG/VIAL IVP SCH (09:22)
[2016-12-14] MEDS: MELOXICAM 7.5 MG TABLET PO SCH (09:22)
[2016-12-14] MEDS: CALCIUM CARB/VITAMIN D 500MG/200IU PO SCH (09:22)
[2016-12-14] MEDS: RANITIDINE HCL 150 MG TABLET PO SCH (09:23)
[2016-12-14] MEDS: FUROSEMIDE 20 MG TABLET PO SCH (09:23)
[2016-12-14] MEDS: AZITHROMYCIN 500 MG TABLET PO SCH (09:23)
[2016-12-14] MEDS: LORATADINE 10 MG TABLET PO SCH (09:23)
[2016-12-14] MEDS: CEFTRIAXONE SODIUM 1 GM in 0.9 % SODIUM CHLORIDE 100ML 100 ML IVPB SCH ×2 (09:30→21:50)
[2016-12-14] MEDS: THEOPHYLLINE 300 MG PO SCH ×3 (09:38→22:11)
[2016-12-14] MEDS ORDERED: INDOMETHACIN PO SCH (10:00)
[2016-12-14] MEDS ORDERED: VITAMIN B COMPLEX PO SCH (10:00)
[2016-12-14] MEDS: ACETAMINOPHEN 500 MG TABLET PO PRN ×2 (13:50→21:48)
[2016-12-14] MEDS: AMITRIPTYLINE 25 MG TABLET PO SCH (21:48)
[2016-12-14] MEDS: CITALOPRAM 20 MG TABLET PO SCH (21:48)
[2016-12-15] MEDS ORDERED: DIPHENHYDRAMINE HCL 25 MG CAPSULE PO PRN (01:46)
[2016-12-15] MEDS: IPRATROPIUM/ALBUTEROL (0.5MG/3MG) NEB INH SCH ×2 (06:04→09:38)
[2016-12-15] MEDS: ACETAMINOPHEN 500 MG TABLET PO PRN (06:56)
[2016-12-15] MEDS: CEFTRIAXONE SODIUM 1 GM in 0.9 % SODIUM CHLORIDE 100ML 100 ML IVPB SCH (09:21)
[2016-12-15] MEDS: CALCIUM CARB/VITAMIN D 500MG/200IU PO SCH (09:24)
[2016-12-15] MEDS: ENOXAPARIN 40 MG/0.4 ML SYR SC SCH (09:24)
[2016-12-15] MEDS: AZITHROMYCIN 500 MG TABLET PO SCH (09:24)
[2016-12-15] MEDS: METHYLPREDNISOLONE PF 125MG/VIAL IVP SCH (09:24)
[2016-12-15] MEDS: MELOXICAM 7.5 MG TABLET PO SCH (09:24)
[2016-12-15] MEDS: RANITIDINE HCL 150 MG TABLET PO SCH (09:25)
[2016-12-15] MEDS: FUROSEMIDE 20 MG TABLET PO SCH (09:25)
[2016-12-15] MEDS: LORATADINE 10 MG TABLET PO SCH (09:25)
[2016-12-15] MEDS: THEOPHYLLINE 300 MG PO SCH (09:26)
--- NOTE | 2016-12-15 10:07 | Discharge Summary ---
Providers Discharge Summary Date: 12/15/16 Date of admission: 12/13/16 12:42 Expected Date of Discharge: 12/15/16 Attending physician: GABRIEL DAN Primary care physician: ALLY GARCIA M.D. Physical Exam - Vital Signs Vital Signs: Vital Signs - Last 24 Hrs Temp Pulse Pulse Resp BP Pulse Ox 12/15/16 09:41 95 12/15/16 09:39 112 H 19 97 12/15/16 07:54 92 H 16 12/15/16 06:14 96 H 16 96 12/15/16 06:06 96 H 16 93 L 12/15/16 06:00 97.8 F 100 H 20 146/89 12/14/16 22:00 98.7 F 104 H 18 141/85 92 L 12/14/16 21:46 92 H 16 92 L 12/14/16 21:38 92 H 18 100 12/14/16 18:05 68 20 12/14/16 13:59 90 14 94 L 12/14/16 13:00 98.2 F 103 H 20 134/82 12/14/16 10:15 91 H 15 91 L 12/14/16 10:11 87 15 91 L - General General Appearance: Alert, Oriented x3, Cooperative, No acute distress Limitations: No limitations - Head Head exam: Normal inspection - Eye Eye exam: Normal appearance, PERRL. negative: Conjunctival injection, Periorbital swelling - ENT ENT exam: Normal exam, Mucous membranes moist Ear exam: Normal external inspection Nasal Exam: Normal inspection Mouth exam: Normal external inspection Teeth exam: Normal inspection Throat exam: Normal inspection - Neck Neck exam: Normal inspection, Full ROM. negative: Tenderness - Respiratory Respiratory exam: Decreased breath sounds, Prolonged expiratory (improved from yesterday), Rhonchi (diffuse), Wheezes (diffuse), Other (improved air exchange, is mobilizing secretions). negative: Normal lung sounds bilaterally - Cardiovascular Cardiovascular Exam: Regular rate, Normal rhythm, Normal heart sounds Peripheral Pulses: 2+: Dorsalis Pedis (R), Dorsalis Pedis (L) - GI/Abdominal GI/Abdominal exam: Soft. negative: Tenderness - Rectal Rectal exam: Deferred - exam: Deferred - Extremities Extremities exam: Normal inspection, Full ROM, Normal capillary refill, Other ( mild erythema and tenderness to left great toe and right heel from a previous recent gout flare). negative: Pedal edema, Tenderness - Back Back exam: Reports: Normal inspection, Full ROM. Denies: Muscle spasm, Rash noted, Tenderness - Neurological Neurological exam: Alert, Normal gait, Oriented X3 - Psychiatric Psychiatric exam: Normal affect, Normal mood. negative: Agitated, Anxious - Skin Skin exam: Dry, Intact, Normal color, Warm. negative: Erythema Hospitalization - Hospitalization Admission Diagnosis: COPD - Problem List/Discharge Diagnosis (1) COPD exacerbation Current Visit: Yes Status: Acute Base Code: J44.1 - CHRONIC OBSTRUCTIVE PULMONARY DISEASE W (ACUTE) EXACERBATION Comment: 12/15/16- clinically improved today, responded well to treatment, improved air exchange and continues to mobilizing secretions - Duo Neb QID as at home - continue C-PAP as before - MRSA PCR collected during stay due to hx of MRSA, results pending - theophyliine level <2.0 but is on max daily dosing of 600mg/day - Prednisone 40mg QD x 5 days at discharge - O2 to keep SPO2 88-92% at home - Zithromax 250mg x 2 more days - follow up PCP 1-2 weeks - follow up with home health travel pt 1-2 weeks (2) DVT prophylaxis Current Visit: No Status: Acute Base Code: [id number] - Comment: 12/15/16 - Will continue Lovenox 40mg SQ QD for DVT prophylaxis (3) DNR (do not resuscitate) Current Visit: Yes Status: Acute Base Code: Z66 - DO NOT RESUSCITATE Comment: 12/15/16: Patient remains DNR during current hospitalization - Hospitalization Course Disposition: Home, Self-Care Hospital Course: 66 y/o female with 1 week history of progressive worsening of wheezing and shortness of breath admitted for exacerbation of COPD. Past medical history includes bilateral cataracts, asthma, bronchitis, COPD, pneumonia, former smoker , CAD, CHF, arthritis, gout, depression. Prior to arrival had progressive worsening of wheezing, cough and shortness of breath for the past week, has been having to use duo neb every 4 hours without relief of shortness of breath. Admits to mild increase in ortega colored sputum. Denied fever or chest pain. Uses 2L O2 at home. Last hospitalized for pneumonia just over 1 year ago. Last saw home health travel pt about a year ago. While in ED SPO2 89% room air, 94% 2L O2. VSS. CBC/CMP unremarkable, no elevation in WBC. Troponin 0.034, BNP 350. CO2 43.5. EKG sinus tach, no acute changes. CXR with mild chronic changes, no infiltrate. Given duo neb x 2 with persistent wheezing. Rocephin 1gm initiated. 12/13/16- resting in bed comfortably, reports improvement in shortness of breath. Wheezing remains but feels is slightly improved since being in the ER. VSS stable. No new nursing concerns. PCP: Dr Garcia Pulmonology: Dr Doyle Abnormal Labs: Abnormal Lab Results 12/14/16 Range/Units 14:31 Theophylline < 2.0 L (10.0-19.0) ug/mL Condition at Discharge: (1) Good Discharge Medications - Discharge Medications Prescriptions: Azithromycin 250 mg PO DAILY #2 tablet Prednisone [Prednisone 20Mg] 40 mg PO DAILY #10 tab Home Medications: Ambulatory Orders Albuterol Sulfate 2.5 mg NEB Q6H ml 09/14/15 [Last Taken 02/14/16] Albuterol Sulfate [Ventolin Hfa] 1 - 2 puff IH Q4H inhaler 09/14/15 [Last Taken 02/14/16] Amitriptyline HCl 25 mg PO QHS tab 09/14/15 [Last Taken 02/14/16] Calcium Carbonate [Calcium] 600 mg PO DAILY tab 09/14/15 [Last Taken 02/14/16] Citalopram Hydrobromide [Celexa] 40 mg PO QHS tab 09/14/15 [Last Taken 02/14/16 ] Meloxicam 15 mg PO DAILY tab 09/14/15 [Last Taken 02/14/16] Ranitidine HCl 150 mg PO DAILY cap 09/14/15 [Last Taken 02/14/16] Sennosides/Docusate Sodium [Senexon-S Tablet] 2 tab PO DAILY tab 09/14/15 [ Last Taken 02/14/16] Theophylline Anhydrous 300 mg PO BID 09/14/15 [Last Taken 02/14/16] Vitamin B Complex 1 each PO DAILY cap 09/14/15 [Last Taken 02/14/16] Furosemide 20 mg PO DAILY 07/03/16 [Last Taken Unknown] Indomethacin [Indocin] 100 mg PO DAILY 07/03/16 [Last Taken Unknown] Cetirizine HCl [Allergy Relief] mg PO DAILY 12/13/16 [Last Taken Unknown] Ipratropium/Albuterol [Duoneb] 3 ml IH Q4H PRN 12/13/16 [Last Taken Unknown] Azithromycin 250 mg PO DAILY #2 tablet 12/15/16 [Last Taken Unknown] Prednisone [Prednisone 20Mg] 40 mg PO DAILY #10 tab 12/15/16 [Last Taken Unknown ] Discharge Plan - Discharge Instructions Activity at Discharge: Increase Activity as Tolerated, Wear Oxygen At All Times Diet at Discharge: Advance to Usual Diet
== END 2016-12-15 12:36 | disposition home or self-care (01) | DRG 192 ==
LOC: ER 10:06 → MEDSURG 12:42
PROVIDERS: ADMIT Family Medicine; ATTEND Family Medicine
DX: J44.1 Chronic obstructive pulmonary disease with (acute) exacerbation (principal); I25.10 Atherosclerotic heart disease of native coronary artery without angina pectoris; I50.9 Heart failure, unspecified; M10.9 Gout, unspecified; M19.90 Unspecified osteoarthritis, unspecified site
CPT/HCPCS: 71010; 80053; 80198; 83880; 84484; 85025; 93005; 93010; 94640; 94760; 94761; 96374; 99223; 99233; 99239; 99285; J1650; J2930; J7613

== ENCOUNTER 2016-12-16 21:32 | Inpatient (IN) | payer MEDICARE ==
[2016-12-16] MEDS ORDERED: METHYLPREDNISOLONE PF 125MG/VIAL IVP ONE (21:48)
[2016-12-16] MEDS ORDERED: IPRATROPIUM/ALBUTEROL (0.5MG/3MG) NEB INH ONE (21:48)
--- NOTE | 2016-12-16 21:50 | Emergency Department Record ---
History of Present Illness - General Chief Complaint: Shortness of breath Stated Complaint: DAVID Time Seen by Provider: 12/16/16 21:42 Source: Patient, EMS Mode of Arrival: Stretcher Limitations: No limitations - History of Present Illness Initial Comments: 66 yo female presents with shortness of breath, cough. She has a history of COPD on 2 liters. She is not a smoker but had a past remote history of smoking. She was admitted for COPD last week. She was much improved at the time of discharge. She gradually worsened the last 2 days with cough. NO chest pain. The cough is mostly dry. She is using her nebulizer about every 4- 5 hours. She remained on her 2 liters at home. NO edema of the legs. MD Complaint: Shortness of breath (2) Onset/Timin -: Days(s) Severity: Moderate Consistency: Constant Improves With: Nothing Worsens With: Exertion Known History Of: COPD Associated Symptoms: Cough Treatments Prior to Arrival: Bronchodilator, Oxygen Treatment Prior to Arrival Comment:: NEB TX AND INCREASED 02 TO 4L - Related Data Home Oxygen Therapy: Yes Home Oxygen Amount: 2 Liters Home Medications Medication Instructions Recorded Confirmed Last Taken Albuterol Sulfate 2.5 mg NEB Q6H ml 09/14/15 12/13/16 12/16/16 Albuterol Sulfate [Ventolin Hfa] 1 - 2 puff IH Q4H inhaler 09/14/15 12/13/16 Amitriptyline HCl 25 mg PO QHS tab 09/14/15 12/13/16 12/16/16 Calcium Carbonate [Calcium] 600 mg PO DAILY tab 09/14/15 12/13/16 12/16/16 Citalopram Hydrobromide [Celexa] 40 mg PO QHS tab 09/14/15 12/13/16 12/16/16 Meloxicam 15 mg PO DAILY tab 09/14/15 12/13/16 12/16/16 Ranitidine HCl 150 mg PO DAILY cap 09/14/15 12/13/16 12/16/16 Sennosides/Docusate Sodium 2 tab PO DAILY tab 09/14/15 12/13/16 12/16/16 [Senexon-S Tablet] Theophylline Anhydrous 300 mg PO BID 09/14/15 12/13/16 12/16/16 Vitamin B Complex 1 each PO DAILY cap 09/14/15 12/13/16 12/16/16 Furosemide 20 mg PO DAILY 07/03/16 12/13/16 12/16/16 Indomethacin [Indocin] 100 mg PO DAILY 07/03/16 12/13/16 12/16/16 Cetirizine HCl [Allergy Relief] 10 mg PO DAILY 12/13/16 12/13/16 12/16/16 Ipratropium/Albuterol [Duoneb] 3 ml IH Q4H PRN 12/13/16 12/13/16 12/16/16 Previous Rx's Medication Instructions Recorded Azithromycin 250 mg PO DAILY #2 tablet 12/15/16 Prednisone [Prednisone 20Mg] 40 mg PO DAILY #10 tab 12/15/16 Allergies Allergy/AdvReac Type Severity Reaction Status Date / Time prochlorperazine Allergy Severe ANAPHYLAXIS Verified 02/14/16 11:50 meperidine HCl [From Demerol] Allergy Intermediate ALTERED Verified 02/14/16 11: 50 MENTAL STATUS Travel Screening - Travel/Exposure Within Last 30 Days Have you traveled within the last 30 days?: No - Travel/Exposure Within Last Year Have you traveled outside the [place] in the last year?: No - Additonal Travel Details Have you been exposed to anyone with a communicable illness?: No Review of Systems Constitutional: Denies: Chills, Fever, Malaise, Weakness Eyes: Denies: Eye discharge ENT: Denies: Congestion, Throat pain Respiratory: Reports: Cough, Dyspnea, Wheezes Cardiovascular: Denies: Chest pain, Palpitations, Syncope Endocrine: Reports: Fatigue. Denies: Polydipsia, Polyuria Gastrointestinal: Denies: Abdominal pain, Diarrhea, Nausea, Vomiting Genitourinary: Denies: Dysuria, Urgency Musculoskeletal: Denies: Arthralgia, Back pain, Myalgia Skin: Denies: Bruising, Change in color, Rash Neurological: Denies: Headache, Numbness, Weakness Psychiatric: Reports: Anxiety Hematological/Lymphatic: Denies: Blood Clots, Easy bleeding, Easy bruising Past Medical History - SOCIAL HISTORY Smoking Status: Former smoker Alcohol Use: None Drug Use: None - RESPIRATORY Hx Respiratory Disorders: Yes Hx Asthma: Yes Hx Bronchitis: Yes Hx COPD: Yes Hx Pneumonia: Yes Comment:: emphysema - CARDIOVASCULAR Hx Cardio Disorders: No - NEURO Hx Neuro Disorders: No Comment:: RLS - GI Hx GI Disorders: No - Hx Genitourinary Disorders: No - ENDOCRINE Hx Endocrine Disorders: No - MUSCULOSKELETAL Hx Musculoskeletal Disorders: Yes Hx Arthritis: Yes - PSYCH Hx Psych Problems: Yes Hx Depression: Yes - HEMATOLOGY/ONCOLOGY Hx Hematology/Oncology Disorders: No Family Medical History Any Significant Family History?: Yes Hx Resp Disorders: Mother, Grandparents Physical Exam - General General Appearance: Alert, Oriented x3, Cooperative, No acute distress Limitations: No limitations - Head Head exam: Normal inspection - Eye Eye exam: Normal appearance, PERRL. negative: Conjunctival injection, Periorbital swelling - ENT ENT exam: Normal exam, Mucous membranes moist Ear exam: Normal external inspection Nasal Exam: Normal inspection Mouth exam: Normal external inspection - Neck Neck exam: Normal inspection, Full ROM. negative: Tenderness - Respiratory Respiratory exam: Accessory muscle use (mild), Decreased breath sounds, Prolonged expiratory, Wheezes. negative: Normal lung sounds bilaterally, Rales , Respiratory distress, Rhonchi, Stridor - Cardiovascular Cardiovascular Exam: Normal rhythm, Tachycardia Peripheral Pulses: 2+: Radial (R), Radial (L) - GI/Abdominal GI/Abdominal exam: Soft. negative: Tenderness - Rectal Rectal exam: Deferred - exam: Deferred - Extremities Extremities exam: Normal inspection, Full ROM, Normal capillary refill. negative: Pedal edema, Tenderness - Back Back exam: Reports: Normal inspection, Full ROM. Denies: Muscle spasm, Rash noted, Tenderness - Neurological Neurological exam: Alert, Normal gait, Oriented X3 - Psychiatric Psychiatric exam: Normal affect, Normal mood - Skin Skin exam: Dry, Intact, Normal color, Warm Course Vital Signs 12/16/16 21:39 Temperature 98.9 F Pulse Rate 114 H Respiratory 18 Rate Blood Pressure 179/110 Pulse Ox 86 L - Reevaluation(s) Reevaluation #1: EKG Sinus Tach, 107, intervals normal, Mora normal, ST normal, PVC's 12/16/16 22:06 Reevaluation #2: The patient is feeling better after the Duoneb Given her hypxia on 2LNC she will be readmitted The labs were reviewed On the CBC the WBC was 13 No acute changes on the CMP The Troponin was 0.037 similar to prior admission. Historically she has mildly elevated Troponins on record back to 2016. CXR was read as no acute process, no infiltrate or CHF Inpatient orders placed 12/16/16 23:02 Medical Decision Making - Lab Data Result diagrams: 12/16/16 21:55 12/16/16 21:55 Disposition Disposition: Admit Clinical Impression: COPD exacerbation, Hypoxia Decision to Admit: Admit from ER Decision to Admit Date: 12/16/16 Decision to Admit Time: 23:05 Time Discussed w/Accepting Physician: 23:05 Condition: (2) Stable Forms: Patient Portal Access Time of Disposition: 23:05 Quality - Quality Measures Quality Measures: N/A - Blood Pressure Screening Does Patient Have Any of the Following: No Blood Pressure Classification: Hypertensive Reading Systolic Measurement: 179 Diastolic Measurement: 110 Screening for High Blood Pressure: < Pre-Hypertensive BP, F/U Documented > [ [id number]] Pre-Hypertensive Follow-up Interventions: Referral to alternative/primary care provider.
[2016-12-16 22:07] LABS: BASO % 0.2 % (0-6); EOS % 0.1 % (0-6); GRAN % 63.3 % (47-80); HEMATOCRIT 40.2 % (35.0-47.0); HEMOGLOBIN 12.4 gm/dl (11.6-16.0); LYMPH % 26.7 % (16-45); MEAN CELL VOLUME 98.5 fl (81-97); MEAN CORPUSCULAR HEMOGLOBIN 30.4 pg (27-33); MEAN CORPUSCULAR HGB CONC 30.8 g/dl (32-36); MEAN PLATELET VOLUME 10.8 fl (7.4-10.4); MONO % 9.7 % (0-9); PLATELET COUNT 458 K/uL (130-400); RED BLOOD COUNT 4.08 M/uL (3.80-5.40); RED CELL DISTRIBUTION WIDTH 13.3 % (11.5-14.5); WHITE BLOOD COUNT W/O DIFF 13.2 K/uL (4.2-12.2)
[2016-12-16 22:18] LABS: ALB/GLOB RATIO 1.1 (1.1-1.8); ALBUMIN 3.9 gm/dL (3.5-5.0); ALKALINE PHOSPHATASE 101 U/L (38-126); ALT/SGPT 41 U/L (9-52); AST/SGOT 30 U/L (14-36); BLOOD UREA NITROGEN 19 mg/dL (7-17); CREATININE 0.7 mg/dL (0.52-1.04); EST GLOMERULAR FILTRATION RATE > 60 ml/min; GLUCOSE,RANDOM 87 mg/dL (70-110); TOTAL PROTEIN 7.6 gm/dL (6.3-8.2)
[2016-12-16 22:25] LABS: ANION GAP 5.5 (7-16); CARBON DIOXIDE 38.5 mmol/L (22-30)
[2016-12-16] MEDS ORDERED: ACETAMINOPHEN 500 MG TABLET PO PRN (23:07)
[2016-12-16] MEDS ORDERED: ALBUTEROL SULFATE (0.083%) 2.5 MG/3 ML NEB INH PRN (23:07)
[2016-12-16] MEDS ORDERED: CEFTRIAXONE SODIUM 1 GM in 0.9 % SODIUM CHLORIDE 100ML 100 ML IVPB SCH (23:15)
[2016-12-17] MEDS: METHYLPREDNISOLONE PF 125MG/VIAL IVP SCH ×4 (00:03→23:17)
[2016-12-17 00:05] LABS: TROPONIN I 0.037 ng/mL (0.00-0.034)
[2016-12-17] MEDS: IPRATROPIUM/ALBUTEROL (0.5MG/3MG) NEB INH SCH ×6 (06:02→21:35)
--- NOTE | 2016-12-17 09:31 | History & Physical ---
History of Present Illness - Date of Service Date of Service for History & Physical: 12/17/16 - History of Present Illness Admitting Diagnosis: COPD History of Present Illness: 66 y/o female with CC wheezing, shortness of breath, cough admitted for exacerbation COPD and hypoxia. Past medical history includes bilateral cataracts , asthma, bronchitis, COPD, pneumonia, former smoker, CAD, CHF, arthritis, gout , depression. Was admitted for COPD exacerbation 12/13, hospital course uncomplicated, responded well clinically to antibiotics, IV steroids. Discharged 12/15 in stable condition, PO steroids and continuation of Azithromycin. Last night returned to ED for acute return of increased shortness of breath and increase cough. Prior to arrival had about 8 hour history of acute worsening shortness of breath , wheezing and increase in cough and persistent mid chest tightness. Has been taking all medications as prescribed, uses home O2 2L, CPAP at night. Denied any chest pain, fever, chills, leg edema, acute weight gain. No hx DVT/PE, clotting disorder. While in ED SPO2 86% 2L, EKG sinus tach. WBC 13, CMP unremarkable, troponin 0.037 which was similar to prior admission. + slightly elevated troponins per history dating back to 2015. CXR negative for acute process. Given Duo Neb in ED with improvement in shortness of breath. Readmitted for repeat exacerbation COPD and possible CT chest for acute onset shortness of breath after discharge from previous admission. 12/17/16- resting in bed comfortably, reports improvement in shortness of breath. Continue to feel midsternal chest tightness that does not radiate. Is able to reproduce with deep inspiration. PCP: Dr Garcia Pulmonology: Dr Doyle Travel Screening - Travel/Exposure Within Last 30 Days Have you traveled within the last 30 days?: No - Travel/Exposure Within Last Year Have you traveled outside the [place] in the last year?: No - Additonal Travel Details Have you been exposed to anyone with a communicable illness?: No Review of Systems Constitutional: Denies: Chills, Fever, Malaise, Weakness Eyes: Denies: Eye discharge ENT: Denies: Congestion, Throat pain Respiratory: Reports: Cough, Dyspnea, Wheezes Cardiovascular: Denies: Chest pain, Palpitations, Syncope Endocrine: Reports: Fatigue. Denies: Polydipsia, Polyuria Gastrointestinal: Denies: Abdominal pain, Diarrhea, Nausea, Vomiting Genitourinary: Denies: Dysuria, Urgency Musculoskeletal: Denies: Arthralgia, Back pain, Myalgia Skin: Denies: Bruising, Change in color, Rash Neurological: Denies: Headache, Numbness, Weakness Psychiatric: Reports: Anxiety Hematological/Lymphatic: Denies: Blood Clots, Easy bleeding, Easy bruising Past Medical History - SOCIAL HISTORY Smoking Status: Former smoker Alcohol Use: Rare Drug Use: None - RESPIRATORY Hx Respiratory Disorders: Yes Hx Asthma: Yes Hx Bronchitis: Yes Hx COPD: Yes Hx Pneumonia: Yes Hx Sleep Apnea: Yes Hx of CPAP: Yes Comment:: emphysema - CARDIOVASCULAR Hx Cardio Disorders: No - NEURO Hx Neuro Disorders: Yes Hx Dizziness: Yes (Upon standing up quickly) Hx Headaches: Yes (Occassionally) Comment:: RLS - GI Hx GI Disorders: No - Hx Genitourinary Disorders: No - ENDOCRINE Hx Endocrine Disorders: No - MUSCULOSKELETAL Hx Musculoskeletal Disorders: Yes Hx Arthritis: Yes Hx Gout: Yes - PSYCH Hx Psych Problems: Yes Hx Anxiety: Yes Hx Depression: Yes - HEMATOLOGY/ONCOLOGY Hx Hematology/Oncology Disorders: No Family Medical History Any Significant Family History?: Yes Hx Alcohol Use: Father Hx Cancer: Mother, Grandparents *Cancer Comment: Mother Uterus Paternal Grandfather Skin Cancer Hx Depression: Father Hx Liver Disease: Father *Liver Comment: Alcohol Hx Resp Disorders: Mother, Grandparents Hx Stroke: Father *Stroke Comment: Massive from at 44years old H&P Meds/Allergies - Allergies Allergies: Allergies Allergy/AdvReac Type Severity Reaction Status Date / Time prochlorperazine Allergy Severe ANAPHYLAXIS Verified 02/14/16 11:50 meperidine HCl [From Demerol] Allergy Intermediate ALTERED Verified 02/14/16 11: 50 MENTAL STATUS - Home Medications Home Medications Medication Instructions Recorded Confirmed Last Taken Albuterol Sulfate 2.5 mg NEB Q6H ml 09/14/15 12/13/16 12/16/16 Albuterol Sulfate [Ventolin Hfa] 1 - 2 puff IH Q4H inhaler 09/14/15 12/13/16 Amitriptyline HCl 25 mg PO QHS tab 09/14/15 12/13/16 12/16/16 Calcium Carbonate [Calcium] 600 mg PO DAILY tab 09/14/15 12/13/16 12/16/16 Citalopram Hydrobromide [Celexa] 40 mg PO QHS tab 09/14/15 12/13/16 12/16/16 Meloxicam 15 mg PO DAILY tab 09/14/15 12/13/16 12/16/16 Ranitidine HCl 150 mg PO DAILY cap 09/14/15 12/13/16 12/16/16 Sennosides/Docusate Sodium 2 tab PO DAILY tab 09/14/15 12/13/16 12/16/16 [Senexon-S Tablet] Theophylline Anhydrous 300 mg PO BID 09/14/15 12/13/16 12/16/16 Vitamin B Complex 1 each PO DAILY cap 09/14/15 12/13/16 12/16/16 Furosemide 20 mg PO DAILY 07/03/16 12/13/16 12/16/16 Indomethacin [Indocin] 100 mg PO DAILY 07/03/16 12/13/16 12/16/16 Cetirizine HCl [Allergy Relief] 10 mg PO DAILY 12/13/16 12/13/16 12/16/16 Ipratropium/Albuterol [Duoneb] 3 ml IH Q4H PRN 12/13/16 12/13/16 12/16/16 Previous Rx's Medication Instructions Recorded Azithromycin 250 mg PO DAILY #2 tablet 12/15/16 Prednisone [Prednisone 20Mg] 40 mg PO DAILY #10 tab 12/15/16 - Active Medications Active Medications: Current Medications Acetaminophen (Tylenol 500mg Tab) 500 mg PO Q6H PRN PRN Reason: PAIN/TEMP Albuterol Sulfate () 2.5 mg INH RESP.Q2H PRN PRN Reason: DIFFICULTY IN BREATHING Albuterol/Ipratropium (Duoneb) 3 ml INH RESP.Q4H.[facility] Last Admin: 12/17/16 06:02 Dose: 3 ml Amitriptyline HCl (Elavil) 25 mg PO QHS [facility] Enoxaparin Sodium (Lovenox) 40 mg SC DAILY [facility] Furosemide (Lasix) 20 mg PO DAILY [facility] Levofloxacin/Dextrose (Levaquin 500mg Ivpb) 500 mg in 100 mls @ 125 mls/hr IVPB Q24H [facility] Stop: 12/22/16 07:31 Methylprednisolone Sodium Succinate (Solu-Medrol) 60 mg IVP Q8H [facility] Last Admin: 12/17/16 06:21 Dose: 60 mg Non-Formulary Medication (Calcium Carbonate [Calcium]) 600 mg PO DAILY [facility] Non-Formulary Medication (Citalopram Hydrobromide [Celexa]) 40 mg PO QHS [facility] Non-Formulary Medication (Indomethacin [Indocin]) 100 mg PO DAILY [facility] Non-Formulary Medication (Meloxicam [Meloxicam]) 15 mg PO DAILY [facility] Non-Formulary Medication (Ranitidine Hcl [Ranitidine Hcl]) 150 mg PO DAILY [facility] Non-Formulary Medication (Theophylline Anhydrous [Theophylline Anhydrous]) 300 mg PO BID [facility] Non-Formulary Medication (Vitamin B Complex [Vitamin B Complex]) 1 each PO DAILY [facility] Physical Exam - Vital Signs Vital Signs: Vital Signs - Last 24 Hrs Temp Pulse Pulse Resp BP Pulse Ox 12/17/16 06:33 92 H 20 126/72 91 L 12/17/16 06:26 91 L 12/17/16 06:02 92 H 16 84 L 12/17/16 01:19 103 H 20 12/16/16 23:39 98.3 F 103 H 20 172/106 95 - General General Appearance: Alert, Oriented x3, Cooperative, No acute distress Limitations: No limitations - Head Head exam: Normal inspection - Eye Eye exam: Normal appearance, PERRL. negative: Conjunctival injection, Periorbital swelling - ENT ENT exam: Normal exam, Mucous membranes moist Ear exam: Normal external inspection Nasal Exam: Normal inspection Mouth exam: Normal external inspection - Neck Neck exam: Normal inspection, Full ROM. negative: Tenderness - Respiratory Respiratory exam: Decreased breath sounds, Prolonged expiratory, Wheezes. negative: Normal lung sounds bilaterally, Rales, Respiratory distress, Rhonchi, Stridor - Cardiovascular Cardiovascular Exam: Normal rhythm, Systolic murmur, Tachycardia Peripheral Pulses: 2+: Radial (R), Radial (L) - GI/Abdominal GI/Abdominal exam: Soft. negative: Tenderness - Rectal Rectal exam: Deferred - exam: Deferred - Extremities Extremities exam: Normal inspection, Full ROM, Normal capillary refill. negative: Pedal edema, Tenderness - Back Back exam: Reports: Normal inspection, Full ROM. Denies: Muscle spasm, Rash noted, Tenderness - Neurological Neurological exam: Alert, Normal gait, Oriented X3 - Psychiatric Psychiatric exam: Normal affect, Normal mood - Skin Skin exam: Dry, Intact, Normal color, Warm Results - Labs Result Diagrams: 12/16/16 21:55 12/16/16 21:55 Labs Last 24 Hours: Laboratory Results - last 24 hr 12/17/16 12/17/16 07:05 07:08 D-Dimer 1.11 H Troponin I 0.033 - Imaging and Cardiology Chest x-ray Status: Report reviewed (negative for acute process) VTE H&P Assessment - Risk for VTE Risk for VTE: Yes Risk Level: Moderate Risk Assessment Date: 12/17/16 Risk Assessment Time: 09:57 VTE Orders Placed or Will Be Placed: Yes Plan - Inpatient Certification Inpatient Certification: Admit to inpatient care: Based on my medical assessment, after consideration of patient's risk factors (age, co-morbidities and patient presenting symptoms and acuity), I expect that this patient will remain in the hospital greater than or equal to two midnights and that the services needed warrant inpatient care because: Patient Risk Factors: [] Estimated length of stay: [] The patient may reasonably be expected to be discharged or transferred to a hospital within 96 hours after admission to [facility]. Services needed: [] Post hospital care (if known): [] I certify that my determination is in accordance with my understanding of Medicare requirements for reasonable and necessary inpatient services. - Detailed Diagnosis and Plan (1) Hypoxia Current Visit: Yes Status: Acute Base Code: R09.02 - HYPOXEMIA Comment: - 66 y/o female readmitted to ED after recent hospital admission for acute episode of shortness of breath, wheezing and chest tightness. SPO2 86% 2L upon arrival. CXR ER negative for infection. Troponin 0.037 which was similar to prior admission. Symptomatic improvement after DuoNeb. Admitted for further work up of new onset shortness of breath and chest tightness after recent discharge. - D-Dimer elevated - CTA chest stat r/o DVT - COPD pathway initiated with use of Levaquin 500mg QD and IV solumedrol 60mg Q 8 hrs - known subtherapeutic theophylline level, is taking regularly - may need to consider inhaled steroid at time of discharge (2) COPD exacerbation Current Visit: Yes Status: Acute Base Code: J44.1 - CHRONIC OBSTRUCTIVE PULMONARY DISEASE W (ACUTE) EXACERBATION Comment: 12/17/16- 66 y/o female readmitted to ED after recent hospital admission for acute episode of shortness of breath, wheezing and chest tightness. SPO2 86% 2L upon arrival. Afebrile, WBC elevated likely due to steroid use. CXR ER negative for infection. Troponin 0.037 which was similar to prior admission. Symptomatic improvement after DuoNeb. Admitted for further work up of new onset shortness of breath and chest tightness after recent discharge. - D-Dimer elevated - CTA chest stat r/o DVT ( on Lovenox 40mg QD) - COPD pathway initiated with use of Levaquin 500mg QD and IV solumedrol 60mg Q 8 hrs - serial cardiac enzymes, cardiology consult - sputum culture pending - known subtherapeutic theophylline level, is taking regularly - may need to consider inhaled steroid at time of discharge (3) DNR (do not resuscitate) Current Visit: No Status: Acute Base Code: Z66 - DO NOT RESUSCITATE Comment: 12/17/16: Patient remains DNR during current hospitalization (4) DVT prophylaxis Current Visit: No Status: Acute Base Code: [id number] - Comment: 12/17/16 - Will continue Lovenox 40mg SQ QD for DVT prophylaxis
[2016-12-17] MEDS ORDERED: AZITHROMYCIN 250 MG TABLET PO SCH (10:00)
[2016-12-17] MEDS: LEVOFLOXACIN 500MG IVPB 500 MG/100 ML BAG IVPB SCH (10:02)
[2016-12-17] MEDS: FUROSEMIDE 20 MG TABLET PO SCH (10:11)
[2016-12-17] MEDS: Non-Formulary MISC (Meloxicam [Meloxicam] 15 MG) PO SCH (10:11)
[2016-12-17] MEDS: ENOXAPARIN 40 MG/0.4 ML SYR SC SCH (10:11)
[2016-12-17] MEDS: INDOMETHACIN PO SCH (10:11)
[2016-12-17] MEDS: VITAMIN B COMPLEX PO SCH (10:12)
[2016-12-17] MEDS: THEOPHYLLINE ANHYDROUS 300 MG PO SCH ×2 (10:12→21:52)
[2016-12-17] MEDS: RANITIDINE HCL 150 MG PO SCH (10:12)
[2016-12-17] MEDS: CALCIUM CARBONATE 600 MG PO SCH (10:12)
[2016-12-17] MEDS: GUAIFENESIN 1,200 MG TABLET PO SCH ×2 (12:05→21:52)
[2016-12-17] MEDS: 0.9 % SODIUM CHLORIDE 1000ML 1,000 ML IV PRN ×2 (13:35→23:19)
[2016-12-17] MEDS: Non-Formulary MISC (Citalopram Hydrobromide [Celexa] 40 MG) PO SCH (21:52)
[2016-12-17] MEDS: AMITRIPTYLINE 25 MG TABLET PO SCH (21:52)
[2016-12-17] MEDS ORDERED: DOCUSATE SODIUM 100 MG CAPSULE PO SCH (22:30)
[2016-12-18] MEDS: IPRATROPIUM/ALBUTEROL (0.5MG/3MG) NEB INH SCH ×5 (05:19→22:13)
[2016-12-18 06:15] LABS: HEMATOCRIT 40.9 % (35.0-47.0); HEMOGLOBIN 12.6 gm/dl (11.6-16.0); MEAN CELL VOLUME 96.7 fl (81-97); MEAN CORPUSCULAR HEMOGLOBIN 29.8 pg (27-33); MEAN CORPUSCULAR HGB CONC 30.8 g/dl (32-36); MEAN PLATELET VOLUME 11.1 fl (7.4-10.4); PLATELET COUNT 467 K/uL (130-400); RED BLOOD COUNT 4.23 M/uL (3.80-5.40); RED CELL DISTRIBUTION WIDTH 13.1 % (11.5-14.5); WHITE BLOOD COUNT W/O DIFF 10.7 K/uL (4.2-12.2)
[2016-12-18 06:20] LABS: ALB/GLOB RATIO 1.1 (1.1-1.8); ALBUMIN 3.8 gm/dL (3.5-5.0); ALKALINE PHOSPHATASE 91 U/L (38-126); ALT/SGPT 43 U/L (9-52); ANION GAP 6.4 (7-16); AST/SGOT 23 U/L (14-36); BILIRUBIN,TOTAL 0.42 mg/dL (0.2-1.3); BLOOD UREA NITROGEN 21 mg/dL (7-17); CARBON DIOXIDE 39.6 mmol/L (22-30); CREATININE 0.6 mg/dL (0.52-1.04); EST GLOMERULAR FILTRATION RATE > 60 ml/min; GLUCOSE,RANDOM 182 mg/dL (70-110); TOTAL PROTEIN 7.4 gm/dL (6.3-8.2)
[2016-12-18 06:40] LABS: PLATELET ESTIMATE INCREASED (NORMAL)
[2016-12-18] MEDS: METHYLPREDNISOLONE PF 125MG/VIAL IVP SCH ×3 (07:16→22:21)
[2016-12-18] MEDS: LEVOFLOXACIN 500MG IVPB 500 MG/100 ML BAG IVPB SCH (07:17)
[2016-12-18] MEDS: INDOMETHACIN PO SCH (09:27)
[2016-12-18] MEDS: CALCIUM CARBONATE 600 MG PO SCH (09:27)
[2016-12-18] MEDS: RANITIDINE HCL 150 MG PO SCH (09:28)
[2016-12-18] MEDS: Non-Formulary MISC (Meloxicam [Meloxicam] 15 MG) PO SCH (09:28)
[2016-12-18] MEDS: FUROSEMIDE 20 MG TABLET PO SCH (09:28)
[2016-12-18] MEDS: THEOPHYLLINE ANHYDROUS 300 MG PO SCH ×2 (09:28→22:22)
[2016-12-18] MEDS: ENOXAPARIN 40 MG/0.4 ML SYR SC SCH (09:28)
[2016-12-18] MEDS: GUAIFENESIN 1,200 MG TABLET PO SCH ×2 (09:28→22:21)
[2016-12-18] MEDS: VITAMIN B COMPLEX PO SCH (09:29)
--- NOTE | 2016-12-18 09:57 | Physician Progress Note ---
Subjective - Date Date of Physician Progress Note: 12/18/16 - Subjective Subjective Comment: Reports continues to feel mid sternal chest tightness that does not radiate. Dry cough. Has been doing PEP valve as ordered along with scheduled breathing treatments. Afebrile. Denies chills. No B/B dysfunction. Ambulating to BR tolerated, shortness of breath is at her reported baseline. Is requesting PT. Had pulmonary rehab ordered for her last year but was unable to afford. Lives in a house with 7 other people, both adults and kids with 3 dogs. House is cluttered and tricia. Has hospital bed at home but is not functioning. Objective - Vital Signs Vital Signs: Vital Signs - Last 24 Hrs Temp Pulse Pulse Resp BP BP Pulse Ox 12/18/16 05:31 97.7 F 92 H 18 154/90 93 L 12/18/16 05:19 88 20 93 L 12/17/16 21:53 98.6 F 102 H 18 152/76 94 L 12/17/16 21:35 104 H 16 93 L 12/17/16 17:43 103 H 19 95 12/17/16 14:27 91 H 19 95 12/17/16 14:26 96 12/17/16 14:00 98.1 F 91 H 18 156/90 93 L 12/17/16 10:57 99 H 19 97 - General General Appearance: Alert, Oriented x3, Cooperative, No acute distress Limitations: No limitations - Head Head exam: Normal inspection - Eye Eye exam: Normal appearance, PERRL. negative: Conjunctival injection, Periorbital swelling - ENT ENT exam: Normal exam, Mucous membranes moist Ear exam: Normal external inspection Nasal Exam: Normal inspection Mouth exam: Normal external inspection - Neck Neck exam: Normal inspection, Full ROM. negative: Tenderness - Respiratory Respiratory exam: Decreased breath sounds, Prolonged expiratory, Wheezes. negative: Normal lung sounds bilaterally, Rales, Respiratory distress, Rhonchi, Stridor - Cardiovascular Cardiovascular Exam: Normal rhythm, Systolic murmur, Tachycardia Peripheral Pulses: 2+: Radial (R), Radial (L) - GI/Abdominal GI/Abdominal exam: Soft. negative: Tenderness - Rectal Rectal exam: Deferred - exam: Deferred - Extremities Extremities exam: Normal inspection, Full ROM, Normal capillary refill. negative: Pedal edema, Tenderness - Back Back exam: Reports: Normal inspection, Full ROM. Denies: Muscle spasm, Rash noted, Tenderness - Neurological Neurological exam: Alert, Normal gait, Oriented X3 - Psychiatric Psychiatric exam: Normal affect, Normal mood - Skin Skin exam: Dry, Intact, Normal color, Warm Assessment and Plan - Assessment and Plan (1) Hypoxia Current Visit: Yes Status: Acute Base Code: R09.02 - HYPOXEMIA Comment: y/o female readmitted to ED after recent hospital admission for acute episode of shortness of breath, wheezing and chest tightness. SPO2 86% 2L upon arrival. CXR ER negative for infection. Troponin 0.037 which was similar to prior admission. Symptomatic improvement after DuoNeb. Admitted for further work up of new onset shortness of breath and chest tightness after recent discharge. Differential for chest tightness/hypoxia on admit may represent mucous plug - D-Dimer elevated - CTA chest negative for PE - COPD pathway initiated with use of Levaquin 500mg QD and IV solumedrol 60mg Q 8 hrs - sputum culture pending - tele sinus rhythem, mild tachy - known subtherapeutic theophylline level, is taking regularly - may need to consider inhaled steroid at time of discharge - continue IV hydration, Mucinex, PEP valve to help mobilize secretions - cardiology consult for chronic elevated troponin (2) COPD exacerbation Current Visit: Yes Status: Acute Base Code: J44.1 - CHRONIC OBSTRUCTIVE PULMONARY DISEASE W (ACUTE) EXACERBATION Comment: [birth year]66 y/o female readmitted to ED after recent hospital admission for acute episode of shortness of breath, wheezing and chest tightness. SPO2 86% 2L upon arrival. CXR ER negative for infection. Troponin 0.037 which was similar to prior admission. Symptomatic improvement after DuoNeb. Admitted for further work up of new onset shortness of breath and chest tightness after recent discharge. Differential for chest tightness/hypoxia on admit may represent mucous plug - D-Dimer elevated - CTA chest negative for PE - COPD pathway initiated with use of Levaquin 500mg QD and IV solumedrol 60mg Q 8 hrs - sputum culture pending - tele sinus rhythem, mild tachy - known subtherapeutic theophylline level, is taking regularly - may need to consider inhaled steroid at time of discharge - continue IV hydration, Mucinex, PEP valve to help mobilize secretions - cardiology consult for chronic elevated troponin (3) DNR (do not resuscitate) Current Visit: No Status: Acute Base Code: Z66 - DO NOT RESUSCITATE Comment: 12/18/16: Patient remains DNR during current hospitalization (4) DVT prophylaxis Current Visit: No Status: Acute Base Code: [id number] - Comment: 12/18/16 - Will continue Lovenox 40mg SQ QD for DVT prophylaxis Results - Labs Result Diagrams: 12/18/16 05:45 12/18/16 05:45 Labs Last 24 Hours: Laboratory Results - last 24 hr 12/17/16 12/17/16 12/18/16 15:00 15:00 05:45 WBC 10.7 RBC 4.23 Hgb 12.6 Hct 40.9 MCV 96.7 MCH 29.8 MCHC 30.8 L RDW 13.1 Plt Count 467 H MPV 11.1 H Neutrophils % 85.0 H Eosinophils % Not Reportable Basophils % Not Reportable Lymphocytes 15.0 L Monocytes 0.0 Platelet Estimate Increased RBC Morphology Normal Sodium Potassium Chloride Carbon Dioxide Anion Gap BUN Creatinine Estimated GFR Random Glucose Calcium Total Bilirubin AST ALT Alkaline Phosphatase CK-MB (CK-2) 1.8 Troponin I 0.027 Total Protein Albumin Globulin Albumin/Globulin Ratio 12/18/16 05:45 WBC RBC Hgb Hct MCV MCH MCHC RDW Plt Count MPV Neutrophils % Eosinophils % Basophils % Lymphocytes Monocytes Platelet Estimate RBC Morphology Sodium 138 Potassium 4.2 Chloride 92 L Carbon Dioxide 39.6 H Anion Gap 6.4 L BUN 21 H Creatinine 0.6 Estimated GFR > 60 Random Glucose 182 H Calcium 9.8 Total Bilirubin 0.42 AST 23 ALT 43 Alkaline Phosphatase 91 CK-MB (CK-2) Troponin I Total Protein 7.4 Albumin 3.8 Globulin 3.6 Albumin/Globulin Ratio 1.1 DVT/PE Assessment - Risk for VTE Risk for VTE: No Risk Level: Moderate Risk Assessment Date: 12/17/16 Risk Assessment Time: 09:57 VTE Orders Placed or Will Be Placed: Yes - Active Medicaitons Current Medications: Current Medications Acetaminophen (Tylenol 500mg Tab) 500 mg PO Q6H PRN PRN Reason: PAIN/TEMP Last Admin: 12/18/16 05:22 Dose: 500 mg Albuterol Sulfate () 2.5 mg INH RESP.Q2H PRN PRN Reason: DIFFICULTY IN BREATHING Albuterol/Ipratropium (Duoneb) 3 ml INH RESP.Q4H.WA [facility] Last Admin: 12/18/16 05:19 Dose: 3 ml Amitriptyline HCl (Elavil) 25 mg PO QHS [facility] Last Admin: 12/17/16 21:52 Dose: 25 mg Enoxaparin Sodium (Lovenox) 40 mg SC DAILY [facility] Last Admin: 12/18/16 09:28 Dose: 40 mg Furosemide (Lasix) 20 mg PO DAILY [facility] Last Admin: 12/18/16 09:28 Dose: 20 mg Guaifenesin (Mucinex) 1,200 mg PO BID [facility] Last Admin: 12/18/16 09:28 Dose: 1,200 mg Levofloxacin/Dextrose (Levaquin 500mg Ivpb) 500 mg in 100 mls @ 125 mls/hr IVPB Q24H [facility] Stop: 12/22/16 07:31 Last Infusion: 12/18/16 08:23 Dose: Infused Sodium Chloride () 1,000 mls @ 100 mls/hr IV .Q10H PRN PRN Reason: LARGE VOLUME IV Last Admin: 12/17/16 23:19 Dose: 100 mls/hr Methylprednisolone Sodium Succinate (Solu-Medrol) 60 mg IVP Q8H [facility] Last Admin: 12/18/16 07:16 Dose: 60 mg Non-Formulary Medication (Calcium Carbonate [Calcium]) 600 mg PO DAILY [facility] Last Admin: 12/18/16 09:27 Dose: 600 mg Non-Formulary Medication (Citalopram Hydrobromide [Celexa]) 40 mg PO QHS [facility] Last Admin: 12/17/16 21:52 Dose: 40 mg Non-Formulary Medication (Indomethacin [Indocin]) 100 mg PO DAILY [facility] Last Admin: 12/18/16 09:27 Dose: 100 mg Non-Formulary Medication (Meloxicam [Meloxicam]) 15 mg PO DAILY [facility] Last Admin: 12/18/16 09:28 Dose: 15 mg Non-Formulary Medication (Ranitidine Hcl [Ranitidine Hcl]) 150 mg PO DAILY [facility] Last Admin: 12/18/16 09:28 Dose: 150 mg Non-Formulary Medication (Theophylline Anhydrous [Theophylline Anhydrous]) 300 mg PO BID [facility] Last Admin: 12/18/16 09:28 Dose: 300 mg Non-Formulary Medication (Vitamin B Complex [Vitamin B Complex]) 1 each PO DAILY [facility] Last Admin: 12/18/16 09:29 Dose: 1 each AMI Plan - Labs Result Diagrams: 12/18/16 05:45 12/18/16 05:45
[2016-12-18] MEDS: 0.9 % SODIUM CHLORIDE 1000ML 1,000 ML IV PRN ×2 (12:25→22:27)
[2016-12-18] MEDS: Non-Formulary MISC (Citalopram Hydrobromide [Celexa] 40 MG) PO SCH (22:21)
[2016-12-18] MEDS: AMITRIPTYLINE 25 MG TABLET PO SCH (22:22)
[2016-12-19] MEDS: IPRATROPIUM/ALBUTEROL (0.5MG/3MG) NEB INH SCH ×3 (06:20→13:35)
[2016-12-19] MEDS: LEVOFLOXACIN 500MG IVPB 500 MG/100 ML BAG IVPB SCH (06:40)
[2016-12-19] MEDS: METHYLPREDNISOLONE PF 125MG/VIAL IVP SCH (06:41)
--- NOTE | 2016-12-19 07:24 | RADIOLOGY REPORT ---
EXAM: CHEST, SINGLE VIEW HISTORY: DIFFICULTY BREATHING. TECHNIQUE: A single view of the chest was obtained. Comparison: 12/13/16. FINDINGS: The heart size is normal. There is no pulmonary vascular congestion. No infiltrate or pleural effusion. There is equivocal mild prominence of the right hilar region. IMPRESSION: EQUIVOCAL PROMINENCE OF THE RIGHT HILAR REGION. NO INFILTRATE OR PLEURAL EFFUSION. JOB NUMBER: [id number] MTDD
--- NOTE | 2016-12-19 07:34 | CT ANGIOGRAM REPORT ---
EXAM: CTA OF THE CHEST WITH CONTRAST HISTORY: DIFFICULTY BREATHING, CHEST PAIN. TECHNIQUE: CTA of the chest was performed after intravenous administration of 80 ml of Omnipaque 350 contrast material. Sagittal and coronal MIP images were performed on an independent workstation. FINDINGS: There is no mass or filling defect to suggest pulmonary embolism. The heart size is normal. No pulmonary vascular congestion. There is mild underlying centrilobular emphysematous change. There is reticulonodular change in both anterior upper lobes and both lung bases. Findings are likely related to small airway disease. There is a small sliding type hiatal hernia. There are multiple low density lesions within the spleen. IMPRESSION: 1. NO CTA FINDINGS SUGGESTIVE OF PULMONARY EMBOLISM. 2. RETICULONODULAR CHANGE WITHIN THE ANTERIOR UPPER LOBES AND BILATERAL LOWER LOBES. FINDINGS ARE LIKELY RELATED TO SMALL AIRWAY DISEASE. MILD UNDERLYING EMPHYSEMATOUS CHANGE. 3. NOT MENTIONED ABOVE IS MILDLY PROMINENT MEDIASTINAL LYMPH NODES MEASURING 10 MM IN SHORT AXIS DIAMETER. JOB NUMBER: [id number] MTDD
[2016-12-19] MEDS: FUROSEMIDE 20 MG TABLET PO SCH (09:49)
[2016-12-19] MEDS: ENOXAPARIN 40 MG/0.4 ML SYR SC SCH (09:49)
--- NOTE | 2016-12-19 09:49 | Rehab Evaluation ---
Patient Information - Patient Information Diagnosis: COPD exacerbation Ordered Treatment: PT Evaluate and Treat Status: Initial Evaluation History: Detail (The patient present to ED on 12/16/16 with complaints of chest tightness, increased shortness of breath. The patient was admitted to the inpatient floor and is referred to PT for an evaluation. The patient is set for a cardiology consult today.) Past Medical/Surgical Hx: PAST MEDICAL/SURGICAL HISTORY Past Surgical History Bilateral cataracts PMH - Respiratory Hx Respiratory Disorders Yes Hx Asthma Yes Hx Bronchitis Yes Hx Chronic Obstructive Yes Pulmonary Disease (COPD) Hx Pneumonia Yes Hx Sleep Apnea Yes Hx of CPAP Yes Comment: emphysema PMH - Cardiovascular Hx Cardiovascular Disorders No PMH - Neuro Hx Neurological Disorders Yes Hx Dizziness Yes: Upon standing up quickly Hx Headaches Yes: Occassionally Comment: RLS PMH - GI Hx Gastrointestinal Disorders No PMH - Hx Genitourinary Disorders No Patient No PMH - Endocrine Hx Endocrine Disorders No PMH - Musculoskeletal Hx Musculoskeletal Disorders Yes Hx Arthritis Yes Hx Gout Yes PMH - Psych Hx Psychiatric Problems Yes Hx Anxiety Yes Hx Depression Yes PMH - Hematology/Oncology Hx Hematology/Oncology No Disorders Premorbid Status: Detail (The patient was ambulatory with or without device at home. Walking household distances and at occasionally went out into the community.) Social History: Detail (The patient lives with extended family in a one story home with a basement. The patient reports her home has 2 enterances, the backdoor has4 steps and one railing and a front porch with 5 steps and 2 railings. Her bathroom has a regular tub/shower combination with a shower chair and a standard toilet. Grab bars are present in the bathroom by the shower. The patient was independent with ADL's and was completing light househod chores such as folding laundry and making easy meals. The patient has a hospital bed, standard walker, 4 wheeled walker with a seat, home O2) Precautions: [place], Fall, Other (droplet precautions for MRSA) - Time With Patient Total Time Spent With Patient (Min): 30 Treatment Procedures: Detail (Initial Evaluation) Subjective Information - Subjective Information Per Patient (The patient has complaints of bilateral gout related pain which she rates as 3 at the highest. The patient admits to occasional fall at home.) Objective Data - Mental Status Patient Orientation: Oriented x3 - Visual Perception Appears within normal limits for therapeutic activities - ROM Not within normal limits (The patient's LE AROM is WFL. The patient has bilateral UE AROM mild limitations in shoulder flexion, external and internal rotation. The patient complained of pain with active external rotation bilaterally.) - Strength/Tone Not within normal limits (The patient's UE strength was generally 4+ to 5/5 except for bilateral grasp which was 4-/5. The patient's LE strength was L hip flexors 3+/5, R 4+/5, B hip abductors and adductors 4/5, hip extensor L 4-/5, R 4/5, knee extensors L 4-/5, R 4+/5, bilateral hamstrings 4/5, ankle musculature 4+/5.) - Bed Mobility Independent (The patient was independent with supine to and from sit transfer.) - Transfers Independent (The patient was independent with sit to stand.) - Balance Balance Sitting: Good Balance Standing: Fair (The patient stood with a wide base of support. Increased postural sway was noted with immediate standing. The patient exhibited decreased posterior balance reaction.) - Gait Detail (The patient ambulated holding onto IV with 3L of O2 and CG for safety a distance 22 feet x 1. O2 sat. level remained 93, minimal shortness of breath was noted. The patient's gait pattern was characterized by decreased stride length, wide base of support, slow careful steps and decreased weight bearing on the R LE.) Therapy Assessment - Therapy Assessment Detail (The patient presents with decreased ability to complete sustained physical activities, decreased LE strength and balance deficits in standing. Feel the patient would benefit from short term PT as an inpatient and possibly subacute rehab. to return to previous functional level. The patient reports she has to walk a distance to her bathrooom at home and does not feel she could currently walk that distance.) Problem List - Problem List Physical Therapy Problem List: Detail (1) Decreased ability to complete sustained physical activity 2) Decreased balance in standing 3) LE weakness 4) Unsteadiness with gait) Goals - Goals Physical Therapy Goals: 1) Complete standardized balance testing. 2) The patient will ambulate with or without assistive device 50 feet independently with minimal to no shortness of breath. 3) Increase LE strength 1/3 muscle grade Prognosis - Prognosis Good Plan - Plan Physical Therapy Plan: PT 1-2 times a day M-F for gait training, LE strengthening and balance exercises.
[2016-12-19] MEDS: THEOPHYLLINE ANHYDROUS 300 MG PO SCH (09:50)
[2016-12-19] MEDS: GUAIFENESIN 1,200 MG TABLET PO SCH (09:50)
[2016-12-19] MEDS ORDERED: CALCIUM CARB/VITAMIN D 500MG/200IU PO SCH (10:00)
[2016-12-19] MEDS ORDERED: RANITIDINE HCL 150 MG TABLET PO SCH (10:00)
[2016-12-19] MEDS ORDERED: MELOXICAM 7.5 MG TABLET PO SCH (10:00)
--- NOTE | 2016-12-19 11:49 | Discharge Summary ---
Providers Discharge Summary Date: 12/19/16 Date of admission: 12/16/16 23:19 Expected Date of Discharge: 12/19/16 Attending physician: GABRIEL DAN Consults: Consult Orders 12/17/16 10:08 Consult - Cardiology NOW Consulting Provider: MILLER EMANUEL Physician Instructions: Reason For Exam: chronically elevated troponin, chest pain Does pt have current monomer purification operator?: Not Established Physical Exam - Vital Signs Vital Signs: Vital Signs - Last 24 Hrs Temp Pulse Pulse Resp BP Pulse Ox 12/19/16 10:24 103 H 19 95 12/19/16 10:00 97.8 F 114 H 18 148/78 93 L 12/19/16 06:20 95 H 20 93 L 12/19/16 02:53 98.0 F 109 H 18 146/81 92 L 12/18/16 22:13 105 H 20 92 L 12/18/16 21:13 98.6 F 103 H 20 158/84 93 L 12/18/16 20:49 99 H 19 12/18/16 18:08 101 H 19 97 12/18/16 14:31 95 12/18/16 14:00 99 H 111 H 16 144/80 93 L - General General Appearance: Alert, Oriented x3, Cooperative, Mild distress (mild conversational dyspnea, appears more breathless) Limitations: No limitations - Head Head exam: Normal inspection - Eye Eye exam: Normal appearance, PERRL. negative: Conjunctival injection, Periorbital swelling - ENT ENT exam: Normal exam, Mucous membranes moist Ear exam: Normal external inspection Nasal Exam: Normal inspection Mouth exam: Normal external inspection - Neck Neck exam: Normal inspection, Full ROM. negative: Tenderness - Respiratory Respiratory exam: Decreased breath sounds, Respiratory distress (mild, worsened with activity). negative: Normal lung sounds bilaterally, Rales, Rhonchi, Stridor - Cardiovascular Cardiovascular Exam: Normal rhythm, Systolic murmur, Tachycardia Peripheral Pulses: 2+: Dorsalis Pedis (R), Dorsalis Pedis (L) - GI/Abdominal GI/Abdominal exam: Soft. negative: Tenderness - Rectal Rectal exam: Deferred - exam: Deferred - Extremities Extremities exam: Normal inspection, Full ROM, Normal capillary refill. negative: Pedal edema, Tenderness - Back Back exam: Reports: Normal inspection, Full ROM. Denies: Muscle spasm, Rash noted, Tenderness - Neurological Neurological exam: Alert, Normal gait, Oriented X3 - Psychiatric Psychiatric exam: Normal affect, Normal mood - Skin Skin exam: Dry, Intact, Normal color, Warm Hospitalization - Hospitalization Admission Diagnosis: COPD - Problem List/Discharge Diagnosis (1) Hypoxia Current Visit: Yes Status: Acute Base Code: R09.02 - HYPOXEMIA Comment: - 66 y/o female readmitted to ED after recent hospital admission for acute episode of shortness of breath, wheezing and chest tightness. SPO2 86% 2L upon arrival. CXR ER negative for infection. Troponin 0.037 which was similar to prior admission. Symptomatic improvement after DuoNeb. Admitted for further work up of new onset shortness of breath and chest tightness after recent discharge. Differential for chest tightness/hypoxia on admit may represent mucous plug. CTA chest negative for PE. Venous dopple BLE pending results. Continues to be tachycardic. Increased reported breathlessness today, increased activity intolerance (dyspneic with amb to BR). No improvement or increase in mobilization of secreations using Mucinex 1200mg BID, PEP valve, IV hydration. - transfer to [facility] Dr [facility] for pulmonary and cardiology consult, possible bronchoscopy - sputum culture pending - known subtherapeutic theophylline level, is taking regularly (2) COPD exacerbation Current Visit: Yes Status: Acute Base Code: J44.1 - CHRONIC OBSTRUCTIVE PULMONARY DISEASE W (ACUTE) EXACERBATION Comment: 12/19/16- see above (3) DNR (do not resuscitate) Current Visit: No Status: Acute Base Code: Z66 - DO NOT RESUSCITATE Comment: 12/19/16: Patient remains DNR during current hospitalization (4) DVT prophylaxis Current Visit: No Status: Acute Base Code: [id number] - Comment: 12/19/16 - Will continue Lovenox 40mg SQ QD for DVT prophylaxis - Hospitalization Course Disposition: Acute Care Hospital Transfer Hospital Course: 66 y/o female with CC wheezing, shortness of breath, cough admitted for exacerbation COPD and hypoxia. Past medical history includes bilateral cataracts , asthma, bronchitis, COPD, pneumonia, former smoker, CAD, CHF, arthritis, gout , depression. Was admitted for COPD exacerbation 12/13, hospital course uncomplicated, responded well clinically to antibiotics, IV steroids. Discharged 12/15 in stable condition, PO steroids and continuation of Azithromycin. Last night returned to ED for acute return of increased shortness of breath and increase cough. Prior to arrival had about 8 hour history of acute worsening shortness of breath , wheezing and increase in cough and persistent mid chest tightness. Has been taking all medications as prescribed, uses home O2 2L, CPAP at night. Denied any chest pain, fever, chills, leg edema, acute weight gain. No hx DVT/PE, clotting disorder. While in ED SPO2 86% 2L, EKG sinus tach. WBC 13, CMP unremarkable, troponin 0.037 which was similar to prior admission. + slightly elevated troponins per history dating back to 2016. CXR negative for acute process. Given Duo Neb in ED with improvement in shortness of breath. Readmitted for repeat exacerbation COPD and possible CT chest for acute onset shortness of breath after discharge from previous admission. 12/17/16- resting in bed comfortably, reports improvement in shortness of breath. Continue to feel midsternal chest tightness that does not radiate. Is able to reproduce with deep inspiration. PCP: Dr Garcia Pulmonology: Dr Doyle Procedures: Imaging and X-Rays 12/17/16 07:45 CHEST CTA w contrast [CTA] Stat 12/19/16 19:11 VENOUS DOPPLER LOWER EXT RASHEED [US] Stat Abnormal Labs: Abnormal Lab Results 12/17/16 12/18/16 12/18/16 Range/Units 07:08 05:45 05:45 MCHC 30.8 L (32-36) g/dl Plt Count 467 H (130-400) K/uL MPV 11.1 H (7.4-10.4) fl Neutrophils % 85.0 H (47-80) % Lymphocytes 15.0 L (16-45) % D-Dimer 1.11 H (0-0.59) mg/L FEU Chloride 92 L (98-107) mmol/L Carbon Dioxide 39.6 H (22-30) mmol/L Anion Gap 6.4 L (7-16) BUN 21 H (7-17) mg/dL Random Glucose 182 H (70-110) mg/dL Condition at Discharge: (3) Guarded Discharge Medications - Discharge Medications Home Medications: Ambulatory Orders Albuterol Sulfate 2.5 mg NEB Q6H ml 09/14/15 [Last Taken 12/16/16] Albuterol Sulfate [Ventolin Hfa] 1 - 2 puff IH Q4H inhaler 09/14/15 [Last Taken 12/16/16] Amitriptyline HCl 25 mg PO QHS tab 09/14/15 [Last Taken 12/16/16] Citalopram Hydrobromide [Celexa] 40 mg PO QHS tab 09/14/15 [Last Taken 12/16/16 ] Meloxicam 15 mg PO DAILY tab 09/14/15 [Last Taken 12/16/16] Ranitidine HCl 150 mg PO DAILY cap 09/14/15 [Last Taken 12/16/16] Sennosides/Docusate Sodium [Senexon-S Tablet] 2 tab PO DAILY tab 09/14/15 [ Last Taken 12/16/16] Theophylline Anhydrous 300 mg PO BID 09/14/15 [Last Taken 12/16/16] Vitamin B Complex 1 each PO DAILY cap 09/14/15 [Last Taken 12/16/16] Furosemide 20 mg PO DAILY 07/03/16 [Last Taken 12/16/16] Indomethacin [Indocin] 100 mg PO DAILY PRN 07/03/16 [Last Taken 12/16/16] Cetirizine HCl [Allergy Relief] 10 mg PO DAILY 12/13/16 [Last Taken 12/16/16] Ipratropium/Albuterol [Duoneb] 3 ml IH Q4H PRN 12/13/16 [Last Taken 12/16/16] Azithromycin 250 mg PO DAILY #2 tablet 12/15/16 [Last Taken 12/16/16] Prednisone [Prednisone 20Mg] 40 mg PO DAILY #10 tab 12/15/16 [Last Taken ] Calcium Carbonate/Vitamin D3 [Calcium 600 + Vit D Tablet] 1 each PO DAILY [Last Taken Unknown] Discharge Plan - Discharge Instructions Activity at Discharge: Increase Activity as Tolerated, Wear Oxygen At All Times Diet at Discharge: Regular Diet
[2016-12-19] MEDS ORDERED: CITALOPRAM 20 MG TABLET PO SCH (22:00)
--- NOTE | 2016-12-20 08:44 | US VENOUS DOPPLER REPORT ---
EXAM: VENOUS DOPPLER OF THE BILATERAL LOWER EXTREMITIES HISTORY: ELEVATED D-DIMER. TECHNIQUE: Sonographic evaluation of the deep venous system of the right and left lower extremities were performed with the addition of Doppler, compression , and augmentation. FINDINGS: There is no evidence of deep vein thrombosis identified in the right and left lower extremities. There is normal compression, augmentation and blood flow identified in the deep venous system of the bilateral lower extremities. IMPRESSION: NEGATIVE FOR DEEP VEIN THROMBOSIS. JOB NUMBER: [id number] MTDD
== END 2016-12-19 14:15 | disposition short-term general hospital (02) | DRG 192 ==
LOC: ER 21:32 → MEDSURG 23:19
PROVIDERS: ADMIT Family Medicine; ATTEND Family Medicine
DX: J44.1 Chronic obstructive pulmonary disease with (acute) exacerbation (principal); I25.10 Atherosclerotic heart disease of native coronary artery without angina pectoris; I50.9 Heart failure, unspecified; M10.9 Gout, unspecified; F41.8 Other specified anxiety disorders; Z66 Do not resuscitate
CPT/HCPCS: 71010; 71275; 80053; 82553; 83880; 84484; 85025; 85027; 85379; 87070; 93005; 93010; 93041; 93970; 94640; 94667; 94668; 94760; 94761; 96374; 99223; 99233; 99239; 99285; J1650; J1956; J2930